=== PATIENT | female | born 1955 | race Caucasian/White ===

== ENCOUNTER → 2023-12-09 | Outpatient (CLI) | payer MEDICARE, SELFPAY ==
[2023-12-09 11:52] LABS: Absolute Lymphocyte Count 1.56 X10^3/uL (0.83-4.51); Absolute Neutrophil Count 5.7 X10^3/uL (2.0-7.7); Basophil# 0.07 X10^3/uL; Basophil% 0.9 % (0-1); Eosinophil# 0.09 X10^3/uL; Eosinophils% 1.1 % (0-5); Hematocrit 40.2 % (37-47); Hemoglobin 13.8 g/dL (12.0-15.0); Lymphocyte # 1.56 X10^3/ul (0.83-4.51); Lymphocyte % 19.6 % (19-41); Mean Corp Hgb Conc 34.3 g/dL (32-36); Mean Corpuscular Hgb 31.1 pg (27.0-32.0); Mean Corpuscular Volume 90.5 fL (81-99); Mean Platelet Vol. 9.7 fl (6.2-12.0); Monocyte# 0.51 X10^3/uL; Monocyte% 6.4 % (0-10); NRBC Flagged by Analyzer 0 % (0-5); Neutrophil # 5.69 X10^3/uL (2.7-7.7); Neutrophil % 71.7 % (47-70); Platelet Count 245 K/mm3 (150-450); RBC Distribution Width CV 13.2 % (11.6-14.6); RBC Distribution Width SD 43.9 fl (35.1-43.9); Red Blood Count 4.44 M/mm3 (4.2-5.4); White Blood Count 7.9 K/mm3 (4.4-11.0)
[2023-12-09 11:58] LABS: Erythrocyte Sedimentation Rate 4 mm/hr (0-30)
[2023-12-09 12:39] LABS: CRP < 2.90 mg/L (0.0-3.0); Ferritin 25 ng/mL (8-252); Iron 79 ug/dL (50-170); Iron Binding Capacity,Total 410 ug/dL (250-450)
== END | disposition home or self-care (01) ==
LOC: LAB 11:11
PROVIDERS: PCP Family Medicine; Referring Provider Student in an Organized Health Care Education/Training Program; Visit Provider Student in an Organized Health Care Education/Training Program
DX: K92.1 Melena (principal)
CPT/HCPCS: 36415; 82728; 83540; 83550; 85025; 85652; 86140

== ENCOUNTER → 2023-12-26 | Outpatient (CLI) | payer MEDICARE, SELFPAY ==
[2023-12-30 02:07] LABS: Pancreatic Elastase, Fecal 199 (>200)
[2023-12-31 19:07] LABS: Calprotectin, Stool 12 ug/g (0-120); Fats, Neutral Normal (.); Fats, Total Increased (.)
== END | disposition home or self-care (01) ==
PROVIDERS: PCP Nurse Practitioner Family; Referring Provider Student in an Organized Health Care Education/Training Program; Visit Provider Student in an Organized Health Care Education/Training Program
DX: K92.1 Melena (principal); K58.9 Irritable bowel syndrome, unspecified
CPT/HCPCS: 82653; 82705; 83630; 83993; 87177; 87209; 87329

== ENCOUNTER 2024-07-22 09:01 | Day surgery (SDC) | payer MEDICARE, SELFPAY ==
--- NOTE | 2024-07-20 15:34 | PAT.ANE_ITS ---
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 When Was Last Pacemaker Check QUESTION #4 FULL TEXT: You/Your Family Experience fever (hyperthermia) with Anesthesia Last Oral Intake Last Oral intake: Last Oral Intake NPO since Meds taken in AM with sips of water? Meds patient instructed to take am of surgery PONV PONV - textile screen printer: PONV - textile screen printer Female Yes 07/20/24 12:31 HX of Motion Sickness No 07/20/24 12:31 HX of N/V After Surgery Yes 07/20/24 12:31 Non-Smoker Yes 07/20/24 12:31 Duration of Surgery greater No 07/20/24 12:31 than 60 minutes Number of Risk Factors 3 07/20/24 12:31 PONV Score Moderate Risk 07/20/24 12:31 Respiratory Assessment Respiratory Assessment - textile screen printer: Respiratory Tract Infection Hx - textile screen printer Hx Respiratory Tract Infection No 07/20/24 12:31 STOP Sleep Apnea STOP Sleep Apnea - textile screen printer: STOP Sleep Apnea - textile screen printer Hx Hypertension Yes: CONTROLLED ON MED 07/20/24 12:31 Hx Sleep Apnea No 07/20/24 12:31 CPAP BIPAP Do you snore loudly (louder No 07/20/24 12:31 than talking or can be heard Do you often feel tired/ No 07/20/24 12:31 fatigued/ sleepy during daytime? Has anyone observed you stop No 07/20/24 12:31 breathing during sleep? STOP Results Negative 07/20/24 12:31 QUESTION #5 FULL TEXT : Do you snore loudly (louder than talking or can be heard through closed doors)? 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 Specify any problems Hx of Preganancy in last 3 No 07/20/24 12:31 Months Nurse Filling Out Transfusion VCHRISTIN 07/20/24 12:31 & Questions: Date: 07/20/24 07/20/24 12:31 Time: 12:32 07/20/24 12:31 Patient unable to answer at this time (ie. confused, unrespo /Reproduction History /Reproductive History - textile screen printer: /Reproductive Hx- textile screen printer Hx Now No 07/20/24 12:31 Gestational Age (in weeks): EDC: Hx Hx Para Hx Section SAB No 07/20/24 12:31 PFSH Medical History (Updated 07/20/24 @ 12:30 by Galina Guzman) Wears glasses Cancer Post-menopausal Alcohol use Arthritis Thyroid disease High cholesterol Excessive bleeding Former smoker COPD (chronic obstructive pulmonary disease) Asthma Shortness of breath on exertion History of edema History of echocardiogram History of stress test Hypertension Cardiology follow-up encounter History of irregular heartbeat Hx of pilonidal cyst Vitamin D deficiency Lower extremity edema Hyperthyroidism Chest tightness Familial hypercholesteremia DVT (deep venous thrombosis) MVP (mitral valve prolapse) Benign essential HTN Blood in feces Home Medications ?Medication ?Instructions ?Recorded ?Last Taken ?Type albuterol sulfate 90 mcg/actuation 1 inh inhalation ON CE PRN 09/27/23 Unknown History aerosol inhaler shortness of breath or wheez ing apixaban 5 mg tablet 5 mg PO BID 09/27/2303/2 5 History carvedilol 25 mg tablet 25 mg PO BID 09/27/23 Unknow n History dorzolamide 22.3 mg-timolol 6.8 1 drp ophthalmic (eye) BID 09/27/23 Unknown History mg/mL eye drops hydrochlorothiazide 25 mg tablet 25 mg PO DAILY Unknown History latanoprost 0.005 % eye drops 1 drp ophthalmic (eye) D AILY 09/27/23 Unknown History levothyroxine 112 mcg capsule 112 mcg PO MOTUWETHFRSA 09/27/23 Unknown History rosuvastatin 20 mg tablet 20 mg PO DAILY 09/27/23 Unkn own History brimonidine 0.2 % eye drops 1 drp ophthalmic (eye) TID 07/20/24 Unknown History cholecalciferol (vitamin D3) 125 125 mcg PO DAILY 08/09 Unknown History mcg (5,000 unit) tablet (Vitamin D3) Allergy/AdvReac Type Severity Reaction Status Date / Time moxifloxacin (From Avelox) Allergy Intermediate Other Verified 07/20/24 12:13 Surgical History (Updated 07/20/24 @ 12:30 by Galina Guzman) History of cardiac catheterization Hx of thyroidectomy Hx of detached retina repair Social History (Updated 09/27/23 @ 10:50 by Zora Velazquez) Smoking Status: Former smoker quit date: 11/10/19 alcohol intake: never Audit: Pertinent Findings Pertinent Findings Stress test pertinent findings: Stress test 05/2022 showing anterior ischemia, patient denied C Echo (EF%) pertinent findings: EF 60-65%, trivial AR (05/2022) Heart catheterization pertinent findings: LHC 2012 showing no CAD, refused recent LHC in 2022 Recommendation Anesthesia Recommendation Anesthesia recommendation: OPTIMIZED for anesthesia
--- NOTE | 2024-07-20 15:35 | PAT.ANE_ITS ---
Pre-Assessment Diagnosis/Proposed Procedure Planned Operative Procedure(s): COLONOSCOPY Anesthesia History Anesthesia History - obstetrics gyn physician: Anesthesia History - obstetrics gyn physician Hx Hospitalization No 07/20/24 12:31 Any Problems With Anesthesia Yes: N&V 07/20/24 12:31 Cholinesterase deficiency No 07/20/24 12:31 You/Your Family Experience No 07/20/24 12:31 fever (hyperthermia) with Relationship Recent Exposure to Contagious Disease Does patient have nerve No 07/20/24 12:31 stimulator Patient instructed to have device shut off --Does patient have Pacemaker or ICD? When Was Last Pacemaker Check QUESTION #4 FULL TEXT: You/Your Family Experience fever (hyperthermia) with Anesthesia Last Oral Intake Last Oral intake: Last Oral Intake NPO since Meds taken in AM with sips of water? Meds patient instructed to take am of surgery PONV PONV - obstetrics gyn physician: PONV - obstetrics gyn physician Female Yes 07/20/24 12:31 HX of Motion Sickness No 07/20/24 12:31 HX of N/V After Surgery Yes 07/20/24 12:31 Non-Smoker Yes 07/20/24 12:31 Duration of Surgery greater No 07/20/24 12:31 than 60 minutes Number of Risk Factors 3 07/20/24 12:31 PONV Score Moderate Risk 07/20/24 12:31 Respiratory Assessment Respiratory Assessment - obstetrics gyn physician: Respiratory Tract Infection Hx - obstetrics gyn physician Hx Respiratory Tract Infection No 07/20/24 12:31 STOP Sleep Apnea STOP Sleep Apnea - obstetrics gyn physician: STOP Sleep Apnea - obstetrics gyn physician Hx Hypertension Yes: CONTROLLED ON MED 07/20/24 12:31 Hx Sleep Apnea No 07/20/24 12:31 CPAP BIPAP Do you snore loudly (louder No 07/20/24 12:31 than talking or can be heard Do you often feel tired/ No 07/20/24 12:31 fatigued/ sleepy during daytime? Has anyone observed you stop No 07/20/24 12:31 breathing during sleep? STOP Results Negative 07/20/24 12:31 QUESTION #5 FULL TEXT : Do you snore loudly (louder than talking or can be heard through closed doors)? 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 Specify any problems Hx of Preganancy in last 3 No 07/20/24 12:31 Months Nurse Filling Out Transfusion VCHRISTIN 07/20/24 12:31 & Questions: Date: 07/20/24 07/20/24 12:31 Time: 12:32 07/20/24 12:31 Patient unable to answer at this time (ie. confused, unrespo /Reproduction History /Reproductive History - obstetrics gyn physician: /Reproductive Hx- obstetrics gyn physician Hx Now No 07/20/24 12:31 Gestational Age (in weeks): EDC: Hx Hx Para Hx Section SAB No 07/20/24 12:31 PFSH Medical History (Updated 07/20/24 @ 12:30 by Galina Guzman) Wears glasses Cancer Post-menopausal Alcohol use Arthritis Thyroid disease High cholesterol Excessive bleeding Former smoker COPD (chronic obstructive pulmonary disease) Asthma Shortness of breath on exertion History of edema History of echocardiogram History of stress test Hypertension Cardiology follow-up encounter History of irregular heartbeat Hx of pilonidal cyst Vitamin D deficiency Lower extremity edema Hyperthyroidism Chest tightness Familial hypercholesteremia DVT (deep venous thrombosis) MVP (mitral valve prolapse) Benign essential HTN Blood in feces Home Medications ?Medication ?Instructions ?Recorded ?Last Taken ?Type albuterol sulfate 90 mcg/actuation 1 inh inhalation ON CE PRN 09/27/23 Unknown History aerosol inhaler shortness of breath or wheez ing apixaban 5 mg tablet 5 mg PO BID 09/27/2303/2 5 History carvedilol 25 mg tablet 25 mg PO BID 09/27/23 Unknow n History dorzolamide 22.3 mg-timolol 6.8 1 drp ophthalmic (eye) BID 09/27/23 Unknown History mg/mL eye drops hydrochlorothiazide 25 mg tablet 25 mg PO DAILY Unknown History latanoprost 0.005 % eye drops 1 drp ophthalmic (eye) D AILY 09/27/23 Unknown History levothyroxine 112 mcg capsule 112 mcg PO MOTUWETHFRSA 09/27/23 Unknown History rosuvastatin 20 mg tablet 20 mg PO DAILY 09/27/23 Unkn own History brimonidine 0.2 % eye drops 1 drp ophthalmic (eye) TID 07/20/24 Unknown History cholecalciferol (vitamin D3) 125 125 mcg PO DAILY 08/09 Unknown History mcg (5,000 unit) tablet (Vitamin D3) Allergy/AdvReac Type Severity Reaction Status Date / Time moxifloxacin (From Avelox) Allergy Intermediate Other Verified 07/20/24 12:13 Surgical History (Updated 07/20/24 @ 12:30 by Galina Guzman) History of cardiac catheterization Hx of thyroidectomy Hx of detached retina repair Social History (Updated 09/27/23 @ 10:50 by Zora Velazquez) Smoking Status: Former smoker quit date: 11/10/19 alcohol intake: never
[2024-07-22] VITALS (7 sets, daily range): BP systolic 123–164; BP diastolic 70–95; PULSE 66–80; RESP 16–20; TEMP 36.2–36.7; O2SAT 99–100; BMI 27.0
[2024-07-22] MEDS: Lactated Ringers 1,000 ML 15 ML IV (09:29)
--- NOTE | 2024-07-22 09:40 | PRE.ANES_ITS ---
ASA Classification* ASA Classification ASA Classification: 3 (hx thyroidectomy, MVP, has had LHC in the past, has some mild cardiac history. No stents. Refused LHC in 2022 for some EKG changes, patient states she is doing okay) Assessment & Plan Anesthesia* Anesthesia Assessment Anesthesia Assessment: Discussed sedation and/or anesthesia options, risks, benefits, and alternatives with patient/parents/legal guardian/POA. Questions invited. The patient/parents/legal guardian/POA seems to understand and agrees to proceed with anesthesia plan. Reviewed the physical assessment, medical history, allergy history and patient home medications list prior to surgery/procedure/anesthetic and documented any changes. Performed airway and anesthesia risk assessments. Anesthesia Type Anesthesia Type: General History Source History Obtained from:: Patient and Chart Anesthesia Focused Assessment* Temperature: 98.1 F Pulse Rate: 66 Blood Pressure: 164/95 Respiratory Rate: 17 Pulse Ox: 100 Oxygen Delivery Method: Room Air Airway Assessment Mouth opens: >3 cm Mallampati Score: II Teeth Condition: Intact and Missing (few missing) Neck Range of motion (ROM): Full ROM Focused Labs Anesthesia Preop lab: CBC WBC 7.9 K/mm3 (4.4-11.0) 12/09/23 11:26 12/09/23 RBC 4.44 M/mm3 (4.2-5.4) 12/09/23 11:26 12/09/23 Hgb 13.8 g/dL (12.0-15.0) 12/09/23 11:26 12/09/23 Hct 40.2 % (37-47) 12/09/23 11:26 12/09/23 Plt Count 245 K/mm3 (150-450) 12/09/23 11:26 12/09/23 CHEMISTRY Potassium 4.2 mmol/L (3.5-5.1) 03/31/15 09:05 03/31/15 Sodium 140 mmol/L (136-145) 03/31/15 09:05 03/31/15 BUN 12 mg/dL (7-18) 03/31/15 09:05 03/31/15 Creatinine 0.72 mg/dL (0.55-1.20) 03/31/15 09:05 03/31/15 Glucose 85 mg/dL (70-110) 03/31/15 09:05 03/31/15 TSH 1.44 uIU/mL (0.358-3.74) 03/31/15 09:05 COAG Pre-Assessment Diagnosis/Proposed Procedure Planned Operative Procedure(s): COLONOSCOPY Anesthesia History 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 When Was Last Pacemaker Check QUESTION #4 FULL TEXT: You/Your Family Experience fever (hyperthermia) with Anesthesia Last Oral Intake Last Oral intake: Last Oral Intake NPO since 07:00 07/22/24 09:29 Meds taken in AM with sips of Yes 07/22/24 09:29 water? Meds patient instructed to take am of surgery PONV PONV - project development leader: PONV - project development leader Female Yes 07/20/24 12:31 HX of Motion Sickness No 07/20/24 12:31 HX of N/V After Surgery Yes 07/20/24 12:31 Non-Smoker Yes 07/20/24 12:31 Duration of Surgery greater No 07/20/24 12:31 than 60 minutes Number of Risk Factors 3 07/20/24 12:31 PONV Score Moderate Risk 07/20/24 12:31 Height & Weight Height & Weight: Anesthesia: Height & Weight Height 5 ft 5 in 07/22/24 09:29 Weight: 73.6 kg 07/22/24 09:29 Body Mass Index (BMI) 27.0 07/22/24 09:29 Respiratory Assessment Respiratory Assessment - project development leader: Respiratory Tract Infection Hx - project development leader Hx Respiratory Tract Infection No 07/20/24 12:31 STOP Sleep Apnea STOP Sleep Apnea - project development leader: STOP Sleep Apnea - project development leader Hx Hypertension Yes: CONTROLLED ON MED 07/20/24 12:31 Hx Sleep Apnea No 07/20/24 12:31 CPAP BIPAP Do you snore loudly (louder No 07/20/24 12:31 than talking or can be heard Do you often feel tired/ No 07/20/24 12:31 fatigued/ sleepy during daytime? Has anyone observed you stop No 07/20/24 12:31 breathing during sleep? STOP Results Negative 07/20/24 12:31 QUESTION #5 FULL TEXT : Do you snore loudly (louder than talking or can be heard through closed doors)? 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 Specify any problems Hx of Preganancy in last 3 No 07/20/24 12:31 Months Nurse Filling Out Transfusion VCHRISTIN 07/20/24 12:31 & Questions: Date: 07/20/24 07/20/24 12:31 Time: 12:32 07/20/24 12:31 Patient unable to answer at this time (ie. confused, unrespo /Reproduction History /Reproductive History - project development leader: /Reproductive Hx- project development leader Hx Now No 07/20/24 12:31 Gestational Age (in weeks): EDC: Hx Hx Para Hx Section SAB No 07/20/24 12:31 Active Medications Active Medications: Current Medications Generic Name Dose Route Start Last Admin Trade Name Freq PRN Reason Stop Dose Admin Lactated Ringer's 1,000 mls @ 15 mls/hr 07/22/24 09:15 07/22/24 09:29 IV 15 mls/hr .Q48H ELISE Administration PFSH Medical History (Updated 07/20/24 @ 12:30 by Galina Guzman) Wears glasses Cancer Post-menopausal Alcohol use Arthritis Thyroid disease High cholesterol Excessive bleeding Former smoker COPD (chronic obstructive pulmonary disease) Asthma Shortness of breath on exertion History of edema History of echocardiogram History of stress test Hypertension Cardiology follow-up encounter History of irregular heartbeat Hx of pilonidal cyst Vitamin D deficiency Lower extremity edema Hyperthyroidism Chest tightness Familial hypercholesteremia DVT (deep venous thrombosis) MVP (mitral valve prolapse) Benign essential HTN Blood in feces Home Medications ?Medication ?Instructions ?Recorded ?Last Taken ?Type albuterol sulfate 90 mcg/actuation 1 inh inhalation ON CE PRN 09/27/23 Unknown History aerosol inhaler shortness of breath or wheez ing apixaban 5 mg tablet 5 mg PO BID 09/27/23 5 History carvedilol 25 mg tablet 25 mg PO BID 09/27/23 History dorzolamide 22.3 mg-timolol 6.8 1 drp ophthalmic (eye) BID 09/27/23 07/22/24 History mg/mL eye drops hydrochlorothiazide 25 mg tablet 25 mg PO DAILY 07/21/24 History latanoprost 0.005 % eye drops 1 drp ophthalmic (eye) D AILY 09/27/23 07/21/24 History levothyroxine 112 mcg capsule 112 mcg PO MOTUWETHFRSA 09/27/23 07/22/24 History rosuvastatin 20 mg tablet 20 mg PO DAILY 09/27/2309/09 History brimonidine 0.2 % eye drops 1 drp ophthalmic (eye) TID 07/20/24 07/22/24 History cholecalciferol (vitamin D3) 125 125 mcg PO DAILY 08/0907/21/24 History mcg (5,000 unit) tablet (Vitamin D3) Allergy/AdvReac Type Severity Reaction Status Date / Time moxifloxacin (From Avelox) Allergy Intermediate Other Verified 07/22/24 09:23 Surgical History (Updated 07/20/24 @ 12:30 by Galina Guzman) History of cardiac catheterization Hx of thyroidectomy Hx of detached retina repair Social History (Updated 09/27/23 @ 10:50 by Zora Velazquez) Smoking Status: Former smoker quit date: 11/10/19 alcohol intake: never Review of Systems (Anesthesia) ROS Narrative System reviewed and no additional complaints, except as documented.
--- NOTE | 2024-07-22 10:00 | COLBX_PTH ---
PATIENT: LETI LOZOYA LOC: [facility] U#:[id number] AGE/SX: 69/F ROOM: RE07/22/[address]: Dr. Elmo Xiong DO : 1955 BED: DIS: 07/22/2024 SPEC #: [id number] RECD: 07/22/24 13:59 STATUS: THEA REPaul #: [id number] GONZALES: 07/22/24 10:[address]: Elmo Xiong DEPT: SURGICAL PATHOLOGY RECD BY: Sae Viveros ENTERED: 07/22/24 15:36 SP TYPE: COLON BX OTHR DR: Kyra Gonzales, DOOR CLAMPER-C Tissues: A - Ascending colon B - Cecum, NOS C - Transverse colon D - SPLENIC FLEXURE E - Sigmoid colon biopsy Procedures: Surgery Specimen Level IV HEADER OPERATION: Colonoscopy with polypectomy x2 with hemostasis PRE-OP DIAGNOSIS: Blood in feces TISSUE SUBMITTED: A- Ascending colon polyps, B- Cecum polyp biopsy, C- Transverse colon polyp, D- Splenic flexure polyp, E- Sigmoid colon biopsy MICROSCOPIC DIAGNOSIS A. Ascending colon, polyp, biopsy: * Tubular adenoma B. Colon, cecum, polyp, biopsy: * Tubular adenoma C. Transverse colon, polyp, biopsy: * Tubular adenoma D. Colon, splenic flexure, polyp, biopsy: * Tubular adenoma E. Sigmoid colon, polyp, biopsy: * Tubulovillous adenoma MICROSCOPIC DESCRIPTION Slides are reviewed. GROSS DESCRIPTION A. Received in formalin in a container labeled with the patient's name, date of , and ascending colon polyp are multiple hamlin-pink fragments of mucosal tissue measuring 1.0 x 0.5 x 0.3 cm in aggregate. Submitted in toto in A1. B. Received in formalin in a container labeled with the patient's name, date of , and cecum polyp biopsy are 3 hamlin-pink fragments of mucosal tissue, each measuring 0.4 x 0.4 x 0.3 cm. Submitted in toto in B1. C. Received in formalin in a container labeled with the patient's name, date of , and transverse colon polyp are multiple hamlin-pink fragments of mucosal tissue measuring 2.5 x 2.3 x 0.7 cm in aggregate. The largest fragment is sectioned (no margin is identified). The specimen is submitted entirely in C1-2. D. Received in formalin in a container labeled with the patient's name, date of , and splenic flexure polyp is a 0.5 x 0.3 x 0.3 cm fragment of hamlin-pink mucosal tissue. Submitted in toto in D1. E. Received in formalin in a container labeled with the patient's name, date of , and sigmoid colon polyp is a 2.5 x 1.8 x 1.7 cm hamlin-pink and polypoid piece of mucosal tissue with an attached 0.6 cm in length by 0.8 cm in diameter stalk (margin inked black). Sectioning reveals hamlin-pink, friable surfaces. Received in the same container are multiple small hamlin-pink fragments of mucosal tissue measuring 0.7 x 0.7 x 0.3 cm in aggregate. The specimen is submitted entirely as follows:E1-5. Polypoid fragment, serially sectionedE6. Smaller fragments [facility] 07-22-2024 CPT:94183x7
--- NOTE | 2024-07-22 10:07 | PCM.HP.STD ---
[facility] - General General Date of Admission: 07/22/24 Date of Service: 07/22/24 Chief Complaint: GI bleed [facility] Narrative LETI LOZOYA, is a 69 F who presents with the chief Complaint: blood in stool f/u [facility] established 9.23.24 w/ bright red blood in her stool for 6-7 months. No hx of colonoscopy and would like to avoid one. Hx of thyroid cancer. Biochemical work up; CBC wnl, iron, TIBC and ferritin wnl OV 1.2.24 Pt continues to have bright red blood streaking when she wipes. She feels ready to have a colonoscopy at this time. She denies abd pain, n/v, constipation, diarrhea, melena, loss of appetite or unintentional weight loss. [facility] Medical History Wears glasses Cancer Post-menopausal Alcohol use Arthritis Thyroid disease High cholesterol Excessive bleeding Former smoker COPD (chronic obstructive pulmonary disease) Asthma Shortness of breath on exertion History of edema History of echocardiogram History of stress test Hypertension Cardiology follow-up encounter History of irregular heartbeat Hx of pilonidal cyst Vitamin D deficiency Lower extremity edema Hyperthyroidism Chest tightness Familial hypercholesteremia DVT (deep venous thrombosis) MVP (mitral valve prolapse) Benign essential HTN Blood in feces Home Medications ?Medication ?Instructions ?Recorded ?Last Taken ?Type albuterol sulfate 90 mcg/actuation 1 inh inhalation ONCE PRN 09/27/23 Unknown History aerosol inhaler shortness of breath or wheezing apixaban 5 mg tablet 5 mg PO BID 09/27/23 07/18/24 History carvedilol 25 mg tablet 25 mg PO BID 09/27/23 07/22/24 History dorzolamide 22.3 mg-timolol 6.8 1 drp ophthalmic (eye) BID 09/27/23 07/22/24 History mg/mL eye drops hydrochlorothiazide 25 mg tablet 25 mg PO DAILY 09/27/23 07/21/24 History latanoprost 0.005 % eye drops 1 drp ophthalmic (eye) DAILY 09/27/23 07/21/24 History levothyroxine 112 mcg capsule 112 mcg PO MOTUWETHFRSA 09/27/23 07/22/24 History rosuvastatin 20 mg tablet 20 mg PO DAILY 09/27/23 07/21/24 History brimonidine 0.2 % eye drops 1 drp ophthalmic (eye) TID 07/20/24 07/22/24 History cholecalciferol (vitamin D3) 125 125 mcg PO DAILY 07/20/24 07/21/24 History mcg (5,000 unit) tablet (Vitamin D3) Allergy/AdvReac Type Severity Reaction Status Date / Time moxifloxacin (From Avelox) Allergy Intermediate Other Verified 07/22/24 09:23 Surgical History History of cardiac catheterization Hx of thyroidectomy Hx of detached retina repair Social History Smoking Status: Former smoker quit date: 11/10/19 alcohol intake: never ROS Constitutional Constitutional: Denies fatigue, fever(s), poor appetite, weight gain or weight loss Gastrointestinal Gastrointestinal: Denies belching, bloating, change in bowel habits, change in stool character, chewing difficulty, coffee ground emesis, constipation, cramping, diarrhea, dyspepsia, dysphagia, early satiety, excessive flatus, fecal incontinence, heartburn, hematemesis, hematochezia, hemorrhoids, loose stools, melena, nausea, odynophagia, rectal bleeding, tenesmus, vomiting or weight changes Vital Signs Vital Signs Vital Signs: 07/22/24 09:29 07/22/24 09:29 07/22/24 09:40 Temperature 98.1 F 98.1 F Temperature Source Temporal Pulse Rate 66 66 Respiratory Rate 17 17 Respiratory Pattern Normal Blood Pressure 164/95 H 164/95 H Blood Pressure Mean 118 Blood Pressure Source Monitor Blood Pressure Position Semi-Fowlers Blood Pressure Location Left Arm Pulse Ox 100 100 Oxygen Delivery Method Room Air Room Air Weight Weight: 162 lb 4.163 oz Body Mass Index (BMI) 27.0 Physical Exam Const alert, oriented x3, no apparent distress and healthy appearing General Appearance: cooperative GI normal to inspection, nondistended, normoactive bowel sounds, soft to palpation, non-tender and non-distended Percussion: normal to percussion Rectal Exam: deferred Assessment & Plan Assessment/Plan (1) Blood in feces: PLAN: Assessment and Plan Assessment and Plan (1) Blood in feces: Status: Acute Plan: This is a 68 yo female pt who established care for bright red blood when wiping after a bm. CBC and iron studies were wnl. She declined colonoscopy at last appointment. Today pt continues to have bright red blood intermittently. She is ready to have a colonoscopy. I explained this procedure to her and she will be scheduled. Her bleeding is likely hemorrhoidal or diverticular in nature. -Colonoscopy with banding if indicated -f/u after procedure
--- NOTE | 2024-07-22 11:31 | PCM.POST.ANE ---
Anesthesia: Postop Eval I Current Vital Signs Temperature: 97.2 F Pulse Rate: 80 Blood Pressure: 123/77 Respiratory Rate: 20 Pulse Ox: 99 Oxygen Delivery Method: Room Air Assessment Airway patent: Yes Spontaneous unlabored respirations: Yes Mental status: Awake and Calm nausea: No Vomiting: No Anesthesia Complication: No Fluid Hydration Crystalloid volume administer (ml): 800 Total IV fluid infused: 800 Progress Note Anesthesia document: Postop Eval 1 completed: Yes
--- NOTE | 2024-07-22 11:47 | OP.CCLET_ITS ---
07/22/2024 Kyra Gonzales Re : Colonoscopy procedure for Eleazar Garcia Dear Christian This procedure was performed on Monday, July 22, 2024. My impressions and recommendations are as follows: Impressions : - Two 2 to 3 mm polyps in the sigmoid colon and in the transverse colon, removed piecemeal using a hot snare. Resected and retrieved. Treated with argon plasma coagulation (APC). Tattooed. - Diverticulosis in the recto-sigmoid colon, in the sigmoid colon and in the descending colon. - Four 1 to 2 mm polyps at the splenic flexure, at the hepatic flexure and in the ascending colon, removed with a hot snare. Resected and retrieved. - Three 10 mm polyps in the cecum, removed with a cold biopsy forceps. Resected and retrieved. Recommendations : - Repeat colonoscopy in 6 months for surveillance. - Continue present medications. My findings are described in the full procedure note, which is enclosed. If I can be of further assistance, please feel free to contact me at . Sincerely, Elmo Xiong DO 07/22/2024 11:46:26 AM This report has been signed electronically.
--- NOTE | 2024-07-22 11:47 | OP.COLON_ITS ---
Patient Name: Eleazar Garcia Procedure Date: 07/22/2024 10:13 AM Date of : 1955 Age: 69 Procedure: Colonoscopy Indications: Screening for colorectal malignant neoplasm Providers: DO Freddie Joy MD: Kyra Gonzales Medicines: Monitored Anesthesia Care Patient Profile: This is a 69 year old female. Refer to note in patient chart for documentation of history and physical. Last Colonoscopy: none. The patient's first colonoscopy is today. Complications: No immediate complications. Procedure: Pre-Anesthesia Assessment: - Prior to the procedure, a History and Physical was performed, and patient medications and allergies were reviewed. The patient is competent. The risks and benefits of the procedure and the sedation options and risks were discussed with the patient. All questions were answered and informed consent was obtained. Patient identification and proposed procedure were verified by the physician in the pre-procedure area. Mental Status Examination: alert and oriented. Airway Examination: normal oropharyngeal airway and neck mobility. Respiratory Examination: clear to auscultation. CV Examination: normal. Prophylactic Antibiotics: The patient does not require prophylactic antibiotics. Prior Anticoagulants: The patient has taken Eliquis (apixaban), last dose was 1 day prior to procedure. ASA Grade Assessment: II - A patient with mild systemic disease. After reviewing the risks and benefits, the patient was deemed in satisfactory condition to undergo the procedure. The anesthesia plan was to use monitored anesthesia care (MAC). Immediately prior to administration of medications, the patient was re-assessed for adequacy to receive sedatives. The heart rate, respiratory rate, oxygen saturations, blood pressure, adequacy of pulmonary ventilation, and response to care were monitored throughout the procedure. The physical status of the patient was re-assessed after the procedure. After I obtained informed consent, the scope was passed under direct vision. Throughout the procedure, the patient's blood pressure, pulse, and oxygen saturations were monitored continuously. The colonoscope was introduced through the anus and advanced to the cecum, identified by appendiceal orifice and ileocecal valve. The colonoscopy was performed without difficulty. The patient tolerated the procedure well. The quality of the bowel preparation was adequate. The ileocecal valve, appendiceal orifice, and rectum were photographed. Scope In: 10:25:55 AM Scope Withdrawal Time 0 hours 35 minutes 0 seconds Scope Out: 11:24:25 AM Total Procedure Duration Time 0 hours 58 minutes 30 seconds Findings: The perianal and digital rectal examinations were normal. Two sessile polyps were found in the sigmoid colon and transverse colon. The polyps were 2 to 3 mm in size. These polyps were removed with a piecemeal technique using a hot snare. Resection and retrieval were complete. Coagulation for destruction of remaining portion of lesion using argon plasma at 0.3 liters/minute and 20 prater was successful. Estimated blood loss was minimal. Area was tattooed with an injection of 5 mL of Miriam ink. To close a defect after polypectomy, one hemostatic clip was successfully placed. Clip store person: [employer]. There was no bleeding at the end of the procedure. Multiple small and large-mouthed diverticula were found in the recto-sigmoid colon, sigmoid colon and descending colon. Four sessile polyps were found in the splenic flexure, hepatic flexure and ascending colon. The polyps were 1 to 2 mm in size. These polyps were removed with a hot snare. Resection and retrieval were complete. Verification of patient identification for the specimen was done. Estimated blood loss was minimal. Three sessile polyps were found in the cecum. The polyps were 10 mm in size. These polyps were removed with a cold biopsy forceps. Resection and retrieval were complete. Verification of patient identification for the specimen was done. Estimated blood loss was minimal. Impression: - Two 2 to 3 mm polyps in the sigmoid colon and in the transverse colon, removed piecemeal using a hot snare. Resected and retrieved. Treated with argon plasma coagulation (APC). Tattooed. - Diverticulosis in the recto-sigmoid colon, in the sigmoid colon and in the descending colon. - Four 1 to 2 mm polyps at the splenic flexure, at the hepatic flexure and in the ascending colon, removed with a hot snare. Resected and retrieved. - Three 10 mm polyps in the cecum, removed with a cold biopsy forceps. Resected and retrieved. Recommendation: - Repeat colonoscopy in 6 months for surveillance. - Continue present medications. Procedure Code(s): --- Professional --- 71569, Colonoscopy, flexible; with removal of tumor(s), polyp(s), or other lesion(s) by snare technique 91720, 59, Colonoscopy, flexible; with biopsy, single or multiple 39260, Colonoscopy, flexible; with directed submucosal injection(s), any substance CPT copyright 2021 [employer]. All rights reserved. The codes documented in this report are preliminary and upon garbage man review may be revised to meet current compliance requirements. Elmo Xiong DO 07/22/2024 11:46:26 AM This report has been signed electronically. Number of Addenda: 0 Note Initiated On: 07/22/2024 10:13 AM
--- NOTE | 2024-07-22 11:56 | POSTOPAN2_ITS ---
Anesthesia Postop Eval I Sum Postop Eval Completion status Anesthesia document: Postop Eval 1 completed: Yes Anesthesia Postop Eval I Summary Anesthesia Postop Eval I Summary: Anesthesia Postop Eval I: Assessment Summary Airway patent Yes 07/22/24 11:31 [email or web address] Spontaneous unlabored Yes 07/22/24 11:31 SCHOOL [email or web address] respirations Mental status Awake,Calm 07/22/24 11:31 [email or web address] nausea No 07/22/24 11:31 SCHOOL [email or web address] Vomiting No 07/22/24 11:31 [email or web address] Anesthesia Postop Eval I: Fluid Summary Crystalloid volume administer 800 07/22/24 11:31 [email or web address] (ml) Colloids volume administered ( ml) Blood Product volume administered (ml) Total IV fluid infused 800 07/22/24 11:31 [email or web address] Anesthesia Postop Eval I: Summary Notes Anesthesia Complication No 07/22/24 11:31 [email or web address] [email or web address] Anesthesia Complication Comment: Post-operative progress note Anesthesia: Postop Eval II Evaluation Mental status: Awake Pain Level: 0 nausea: No Vomiting: No Complications Anesthesia Complication: No
--- NOTE | 2024-07-22 11:56 | PCM.POSTANE2 ---
Anesthesia Postop Eval I Sum Postop Eval Completion status Anesthesia document: Postop Eval 1 completed: Yes Anesthesia Postop Eval I Summary Anesthesia Postop Eval I Summary: Anesthesia Postop Eval I: Assessment Summary Airway patent Yes 07/22/24 11:31 WATER FILTRATION [email or web address] Spontaneous unlabored Yes 07/22/24 11:31 WATER FILTRATION [email or web address] respirations Mental status Awake,Calm 07/22/24 11:31 WATER FILTRATION [email or web address] nausea No 07/22/24 11:31 WATER FILTRATION [email or web address] Vomiting No 07/22/24 11:31 WATER FILTRATION [email or web address] Anesthesia Postop Eval I: Fluid Summary Crystalloid volume administer 800 07/22/24 11:31 WATER FILTRATION [email or web address] (ml) Colloids volume administered ( ml) Blood Product volume administered (ml) Total IV fluid infused 800 07/22/24 11:31 WATER FILTRATION [email or web address] Anesthesia Postop Eval I: Summary Notes Anesthesia Complication No 07/22/24 11:31 WATER FILTRATION [email or web address] Anesthesia Complication Comment: Post-operative progress note Anesthesia: Postop Eval II Evaluation Mental status: Awake Pain Level: 0 nausea: No Vomiting: No Complications Anesthesia Complication: No
== END 2024-07-22 12:33 | disposition home or self-care (01) ==
LOC: EN 09:03 → AC 09:06
PROVIDERS: PCP Nurse Practitioner Family; Referring Provider Nurse Practitioner Family; Visit Provider Internal Medicine Gastroenterology
PROC: 0DJD8ZZ Inspection of Lower Intestinal Tract, Via Natural or Artificial Opening Endoscopic (ICD-10-PCS; CPT 45378; principal; 2024-07-22 09:55)
DX: D12.5 Benign neoplasm of sigmoid colon (principal); J44.9 Chronic obstructive pulmonary disease, unspecified; D12.0 Benign neoplasm of cecum; D12.2 Benign neoplasm of ascending colon; D12.3 Benign neoplasm of transverse colon; K92.1 Melena; K57.30 Diverticulosis of large intestine without perforation or abscess without bleeding; E07.9 Disorder of thyroid, unspecified; E78.01 Familial hypercholesterolemia; I10 Essential (primary) hypertension; Z79.01 Long term (current) use of anticoagulants; Z79.890 Hormone replacement therapy; Z79.899 Other long term (current) drug therapy; Z87.891 Personal history of nicotine dependence; Z85.850 Personal history of malignant neoplasm of thyroid
CPT/HCPCS: 45385; 45380; 45381; 88305; C1889; A4648; J2405

== ENCOUNTER 2024-07-28 16:30 | Inpatient (IN) | payer MEDICARE, SELFPAY ==
[2024-07-28] VITALS (22 sets, daily range): BP systolic 42–159; BP diastolic 31–95; PULSE 72–95; RESP 13–21; TEMP 36–37.3; O2SAT 94–99; BMI 26.9; BMI 27.1
--- NOTE | 2024-07-28 16:50 | EKG12_ITS ---
Test Reason : GI BLEED Blood Pressure : */* mmHG Vent. Rate : 86 BPM Atrial Rate : 86 BPM P-R Int : 180 ms QRS Dur : 94 ms QT Int : 404 ms P-R-T Axes : 59 44 33 degrees QTcB Int : 483 ms Normal sinus rhythm Nonspecific ST and T wave abnormality Abnormal ECG Confirmed by Yang Salguero ([id number]), avid editor CANDELARIO JARA ([id number]) on 07/30/2024 10:01:08 AM Referred By: Elmo Friend Confirmed By: Yang Salguero
[2024-07-28 17:11] LABS: Absolute Lymphocyte Count 1.53 X10^3/uL (0.83-4.51); Absolute Neutrophil Count 5.9 X10^3/uL (2.0-7.7); Basophil# 0.06 X10^3/uL; Basophil% 0.7 % (0-1); Eosinophil# 0.04 X10^3/uL; Eosinophils% 0.5 % (0-5); Hematocrit 34.7 % (37-47); Hemoglobin 12.4 g/dL (12.0-15.0); Lymphocyte # 1.53 X10^3/ul (0.83-4.51); Lymphocyte % 18.3 % (19-41); Mean Corp Hgb Conc 35.7 g/dL (32-36); Mean Corpuscular Hgb 32.3 pg (27.0-32.0); Mean Corpuscular Volume 90.4 fL (81-99); Mean Platelet Vol. 9.8 fl (6.2-12.0); Monocyte# 0.76 X10^3/uL; Monocyte% 9.1 % (0-10); NRBC Flagged by Analyzer 0 % (0-5); Neutrophil % 70.8 % (47-70); Platelet Count 304 K/mm3 (150-450); RBC Distribution Width CV 13.3 % (11.6-14.6); Red Blood Count 3.84 M/mm3 (4.2-5.4); White Blood Count 8.3 K/mm3 (4.4-11.0)
[2024-07-28 17:14] LABS: Prothrombin Time (Protime)PT. 13.6 SECONDS (11.7-14.9)
[2024-07-28 17:15] LABS: Partial Thromboplast Time 28.9 Seconds (24.1-36.2)
--- NOTE | 2024-07-28 17:19 | EDS_ITS ---
HPI HPI - GI History of Present Illness Chief Complaint: GI Bleed Informant: patient and spouse/S.O. Narrative Narrative: Presents with increasing rectal bleeding with clots since yesterday. She had a colonoscopy [address] Collins with multiple polypectomies. She is on Eliquis for history of DVTs. She did hold her Eliquis prior to her procedure and she does not know which day she restarted it since her procedure 6 days ago. She had a couple bright red blood with small clots yesterday today has had at least 12 pads liquid with clots. Mild abdominal cramping. States mild lightheaded symptoms. No chest pains or shortness of breath. She did not take this morning's Eliquis. PFSH [facility] Medical History Alcohol abuse Wears glasses Cancer Post-menopausal Alcohol use Arthritis Thyroid disease High cholesterol Excessive bleeding Former smoker COPD (chronic obstructive pulmonary disease) Asthma Shortness of breath on exertion History of edema History of echocardiogram History of stress test Hypertension Cardiology follow-up encounter History of irregular heartbeat Hx of pilonidal cyst Vitamin D deficiency Lower extremity edema Hyperthyroidism Chest tightness Familial hypercholesteremia DVT (deep venous thrombosis) MVP (mitral valve prolapse) Benign essential HTN Blood in feces Home Medications ?Medication ?Instructions ?Recorded ?Last Taken ?Type albuterol sulfate 90 mcg/actuation 1 inh inhalation Q4 H PRN shortness 09/27/23 Unknown History aerosol inhaler of breath or wheezing apixaban 5 mg tablet 5 mg PO BID 09/27/23 5 History carvedilol 25 mg tablet 25 mg PO BID 09/27/23 History dorzolamide 22.3 mg-timolol 6.8 1 drp ophthalmic (eye) BID 09/27/23 07/28/24 History mg/mL eye drops hydrochlorothiazide 25 mg tablet 25 mg PO DAILY 07/28/24 History latanoprost 0.005 % eye drops 1 drp ophthalmic (eye) Q HS 09/27/23 07/27/24 History levothyroxine 112 mcg capsule 112 mcg PO MOTUWETHFRSA 09/27/23 07/28/24 History rosuvastatin 20 mg tablet 20 mg PO QHS 09/27/23 History brimonidine 0.2 % eye drops 1 drp ophthalmic (eye) TID 07/20/24 07/28/24 History cholecalciferol (vitamin D3) 125 125 mcg PO DAILY 08/0907/28/24 History mcg (5,000 unit) tablet (Vitamin D3) Allergy/AdvReac Type Severity Reaction Status Date / Time moxifloxacin (From Avelox) Allergy Intermediate Other Verified 07/28/24 16:33 Family History adopted Surgical History History of cardiac catheterization Hx of thyroidectomy Hx of detached retina repair Social History household members: none Smoking Status: Former smoker quit date: 11/10/19 alcohol intake: current alcohol intake frequency: 3 or more drinks per day Alcohol type: beer substance use type: does not use ROS ROS ED Constitutional Constitutional ED: Denies chills, fever(s) or sweats ENT ENT ED: Denies sore throat Cardiovascular Cardiovascular: Denies chest pain, leg edema, palpitations or racing heartbeat Respiratory/Chest Respiratory/Chest: Denies cough, dyspnea or dyspnea on exertion Gastrointestinal Gastrointestinal: Reports other Details: Hematochezia ; Denies abdominal pain, diarrhea, nausea or vomiting Genitourinary Genitourinary ED: Denies dysuria, hematuria or urinary frequency Musculoskeletal Musculoskeletal: Denies back pain, extremity pain or neck pain Integumentary Denies rash or wounds Neurologic Neurologic: Denies headache(s), paresthesias or weakness EXAM Physical Exam Const Vital Signs: 07/28/24 16:34 07/28/24 17:31 07/28/24 18:36 Temperature 97.4 F L Temperature Source Temporal Pulse Rate 95 84 Pulse Rate [Lying] 86 Pulse Rate [Sitting (for 1 minute prior to obtaining)] 84 Pulse Rate [Standing (for 1 minute prior to obtaining)] 90 Respiratory Rate 18 13 Blood Pressure 115/92 H 134/84 H Blood Pressure [Lying] 139/91 H Blood Pressure [Sitting (for 1 minute prior to obtaining)] 124/92 H Blood Pressure [Standing (for 1 minute prior to obtaining)] 70/55 L Blood Pressure Mean 99 100 Blood Pressure Mean [Lying] 107 Blood Pressure Mean [Sitting (for 1 minute prior to obtaining)] 102 Blood Pressure Mean [Standing (for 1 minute prior to obtaining)] 60 Pulse Ox 97 98 Oxygen Delivery Method Room Air 07/28/24 18:45 07/28/24 18:48 07/28/24 18:50 Temperature Temperature Source Pulse Rate 78 80 78 Pulse Rate [Lying] Pulse Rate [Sitting (for 1 minute prior to obtaining)] Pulse Rate [Standing (for 1 minute prior to obtaining)] Respiratory Rate Blood Pressure 88/62 L 42/31 L 155/95 H Blood Pressure [Lying] Blood Pressure [Sitting (for 1 minute prior to obtaining)] Blood Pressure [Standing (for 1 minute prior to obtaining)] Blood Pressure Mean 70 34 115 Blood Pressure Mean [Lying] Blood Pressure Mean [Sitting (for 1 minute prior to obtaining)] Blood Pressure Mean [Standing (for 1 minute prior to obtaining)] Pulse Ox Oxygen Delivery Method 07/28/24 19:00 Temperature 99.1 F Temperature Source Temporal Pulse Rate 77 Pulse Rate [Lying] Pulse Rate [Sitting (for 1 minute prior to obtaining)] Pulse Rate [Standing (for 1 minute prior to obtaining)] Respiratory Rate 13 Blood Pressure 159/92 H Blood Pressure [Lying] Blood Pressure [Sitting (for 1 minute prior to obtaining)] Blood Pressure [Standing (for 1 minute prior to obtaining)] Blood Pressure Mean 114 Blood Pressure Mean [Lying] Blood Pressure Mean [Sitting (for 1 minute prior to obtaining)] Blood Pressure Mean [Standing (for 1 minute prior to obtaining)] Pulse Ox 96 Oxygen Delivery Method Room Air Positive well nourished and well developed General Appearance ED: well developed and NAD HEENT Reports moist mucous membranes normocephalic and atraumatic Eyes Eyes Narrative: Mild pallor of conjunctiva General Eye ED: Yes normal appearance of both eyes Neck full ROM Chest Wall Chest: Negative for tenderness Resp normal respiratory effort and normal air movement Effort and Inspection: symmetric chest movement; Negative for respiratory distress Cardio regular rate, regular rhythm and no murmurs Peripheral Pulses: pulses 2+ throughout GI normal to inspection, nondistended, normoactive bowel sounds and non-tender Palpation: Negative for guarding or rebound tenderness present Extremity normal to inspection General Extremety ED: Negative for edema or tenderness General Extremity: Negative for edema Neuro oriented x3 and no sensory deficits noted Sensorium / Orientation: awake and alert Skin no rashes or lesions noted and no wounds MDM MDM MDM Narrative Medical decision making narrative: Interventions / MDM: Differential diagnosis: Lower GI bleed, syncope, chronic anticoagulation Diagnosis considered but do not suspect: N/A My EKG interpretation: N/A Imaging independently reviewed and interpreted by myself: CT angiogram abdomen pelvis: There is a hyperdensity bleeding sigmoid region. Pending final read. External documents reviewed: Colonoscopy from 6 days ago. Multiple polypectomies, performed cecum, ascending colon hepatic flexure transverse colon splenic flexure and sigmoid 1 clip was placed. Test considered but not ordered:N/A ED course: Rectal bleeding with clots starting yesterday she is on Eliquis. Slight pale conjunctiva. She did not take this morning's dose. At least 12 episodes today per patient. Nonsurgical abdomen. She had a bowel movement in the ED bright red blood in the cup. Vitals currently stable. Lightheaded symptoms. Will check orthostatics will check blood, EKG ordered. 1720: Hemoglobin currently 12.4. [place] score 16. EKG sinus rhythm. 172: During the time for orthostatics patient had a syncopal episode with staff assist In the room. Pressure 70/55, she awake in. Fluids were ordered. 174: Blood pressure 134 systolic in the room. BUN 12 creatinine 0.71. Potassium 2.8. I spoke with Dr. Xiong, we will obtain CT angiogram abdomen pelvis, we will admit the patient, he would like her prep with hospitalist service. We plan to repeat an H&H in 1 hour. 1855: Called back to the room patient had bowel movement with clots became symptomatic blood pressure was dropped in the 80s to 140s she is awake, additional IV established fluids given type and cross for 2 units. H&H being sent currently. Nurse report blood was drawn and it was after already drawn that she became symptomatic therefore less likely vasovagal concerns. Review of the CT angiogram concerns for hyperdensity bleed in the sigmoid region awaiting final read. Hospitalist Dr. Venutra was in the room also seeing the patient. I read discussed with Dr. Xiong who is currently at the hospital who will see the patient likely intervention tonight. She will be admitted to the ICU. 1904: Recheck hemoglobin 10.1 down from 12.4. Blood pressure currently 159/92. 2104: I did receive call from radiology, discussed confirming the bleeding from sigmoid region. At this time patient already in the endoscopy suite. Re-evaluation: stable Disposition discussed with patient/family/significant other: Patient and family Case discussed with consulting clinician: Gastroenterology, hospitalist This note was generated with [employer] software. It may contain incorrect words, spelling, and punctuation that were not noted in checking the note before signing. Lab Data Attestation: I reviewed the patient's lab results. Labs: Laboratory Results - last 24 hr 07/28/24 07/28/24 16:50 18:47 WBC 8.3 RBC 3.84 L Hgb 12.4 10.1 L Hct 34.7 L 29.1 L MCV 90.4 MCH 32.3 H MCHC 35.7 RDW Std Deviation 44.0 H RDW Coeff of Luis Fernando 13.3 Plt Count 304 MPV 9.8 Immature Gran % (Auto) 0.600 Neut % (Auto) 70.8 H Lymph % (Auto) 18.3 L Cochran % (Auto) 9.1 Eos % (Auto) 0.5 Baso % (Auto) 0.7 Absolute Neuts (auto) 5.9 Absolute Lymphs (auto) 1.53 Nucleated RBC % 0 PT 13.6 INR 1.0 APTT 28.9 Sodium 136 Potassium 2.8 L Chloride 94 L Carbon Dioxide 28.6 Anion Gap 13 BUN 12 Creatinine 0.71 Estim Creat Clear Calc 67.57 Est GFR (MDRD) Non-Af 93 BUN/Creatinine Ratio 16.2 Glucose 119 H Calcium 9.3 Phosphorus 3.6 Magnesium 2.1 Blood Type A NEGATIVE Antibody Screen NEGATIVE Crossmatch See Detail Radiography Diagnostic Testing: Clinical Impression(s) from Imaging Studies Abdomen/Pelvis CTA 07/28/24 17:49 IMPRESSION: Diffuse rectosigmoid wall thickening and hyperemia, with small focus of active extravasation, compatible with acute GI bleed. Diffuse atherosclerotic calcification without evidence of dissection. Red Alert: The critical information above was relayed directly by me by telephone to Rodríguez Bray on 07/28/2024 at 9:04 pm with readback verification. Reading [facility] Critical [facility] Time Critical Care Time: Yes Critical care time (excluding procedures): 30-74 minutes, Discussing w/Patient &/or Family/Credit Controller, Discussing w/Consultants, Arranging Admission or Transfer, Performing Direct Patient Care at Bedside and - (45 minutes) Discharge Plan Dx/Rx/DC Orders Clinical Impression: GI bleed, Syncope, Transient hypotension, Chronic anticoagulation Disposition Disposition: Acute Care Hospital [facility] Discharge Date/Time: 07/28/24 20:14
--- NOTE | 2024-07-28 17:33 | ED.RN ---
This RN at bedside obtaining orthostatic vitals. RN obtain lying and sitting. patient asked to stand for the last vital. pts blood pressure began. Patient c/o dizziness. RN continued to talk to patient monitoring her. Rn saw patients eyes begin to roll in the back of her head. RN safely returned patient to bed. Staff assist button pressed by this RN. RN advised daughter to remove the children from the room. Patient became conscious again asking if she passed out and what she remembered last. pt states she said she was dizzy and thats all she could remember. Patient repositioned in bed Patient states I think I messed my pants. RN collected adult diaper and warm wipes and began to clean and change patient. Will continue to monitor
[2024-07-28 17:38] LABS: Anion Gap 13 (5-15); BUN 12 mg/dL (4-19); BUN/Creat Ratio 16.2 RATIO (10-20); Calcium,Total 9.3 mg/dL (7.6-11.0); Carbon Dioxide 28.6 mmol/L (21.0-32.0); Chloride 94 mmol/L (98-108); Creatinine, Serum 0.71 mg/dL (0.70-1.20); EST Glomerular Filtration Rate 93 (>60); Estimated Creatinine Clearance 67.57 ml/min (50-250); Glucose 119 mg/dL (70-99); Potassium 2.8 mmol/L (3.3-5.1); Sodium Level 136 mmol/L (133-145)
--- NOTE | 2024-07-28 17:49 | CT_ITS ---
PROCEDURE: CTA ABD/PELVIS W/WO CONTRAST 07/28/2024 REASON FOR EXAM: GI BLEED TECHNIQUE: CTA imaging of the abdomen and pelvis with intravenous contrast. Multiplanar and multisequence images were obtained. CONTRAST: Omnipaque 350 VOLUME: 100 mL Not Provided Gauge IV One or more dose reduction techniques were used (e.g., Automated exposure control, adjustment of the mA and/or kV according to patient size, use of iterative reconstruction technique). COMPARISON: None FINDINGS: CT ABDOMEN AND PELVIS FINDINGS: Upper GI tract: Unremarkable. Liver: The visualized hepatic parenchyma is unremarkable. Gallbladder: Biliary System: Unremarkable for age. Spleen: Normal size. Pancreas: Unremarkable. Adrenal glands: Unremarkable. Kidneys/ureters: No simple left renal cysts. No calculi or hydronephrosis.. Veins: Lymph nodes: No adenopathy. Small bowel: Diffuse wall thickening and submucosal hyperemia involving the rectosigmoid. There is small focus of contrast extravasation within the sigmoid (series 2 image 115), concerning for active extravasation.. Colon: Normal caliber; no wall thickening. Appendix: No findings of appendicitis. Peritoneum: No free air or fluid. : Urinary bladder is unremarkable.. Bones: Unremarkable for age. Soft tissue including the abdominal wall: No acute abnormality. Additional comments: None. CTA ABDOMEN AND PELVIS FINDINGS: ABDOMINAL AORTA: Diffuse atherosclerotic calcification, without evidence of aneurysm or dissection.. AORTIC BRANCHES: Right renal artery: 2 right renal arteries. Widely patent. Left renal artery: 2 left renal arteries. Widely patent. Celiac artery: Widely patent. Superior mesenteric artery: Widely patent. Inferior mesenteric artery: Widely patent. PELVIC ARTERIES: RIGHT PELVIS: Common iliac: Widely patent. External iliac: Widely patent. Internal iliac: Widely patent. Common femoral artery: Widely patent. LEFT PELVIS: Common iliac: Widely patent. External iliac: Widely patent. Internal iliac: Widely patent. Common femoral artery: Widely patent. Additional comments: None. CT/CTA Abd/Pelvis W/WO Contrast IMPRESSION: Diffuse rectosigmoid wall thickening and hyperemia, with small focus of active extravasation, compatible with acute GI bleed. Diffuse atherosclerotic calcification without evidence of dissection. Red Alert: The critical information above was relayed directly by me by telephone to Koby Bray on 07/28/2024 at 9:04 pm with readback verification. Electronically Signed By: Lobito fernandes 07/28/2024 21:04 Reading Location: [facility]
--- NOTE | 2024-07-28 18:44 | PCM.HP.STD ---
HPI - General General Date of Admission: 07/28/24 Date of Service: 07/28/24 Chief Complaint: BRBPR, abdominal cramping. HPI Narrative The patient is a 69 y/o F w/ PMHx: EtOH abuse (3-4 beers daily), HTN, HLD, Hx Hyperthyroidism s/p thyroidectomy w/ resulting Hypothyroidism, COPD/Asthma, Former tobacco use, Hx VTE who presents to the [facility] ED on 07/28/2024 with history of significant rectal bleeding with clots starting the day prior and continuing with previous colonoscopy noted to be 6 days previously with multiple polypectomies at that time on Eliquis for history of VTE with hold on her Eliquis prior to procedure however she did restart it since then noting that the amount of blood loss and clots has significantly increased since initial onset with associated mild abdominal cramping, lightheadedness and dizziness prompting ED evaluation. She states she has not taken her Eliquis today. Workup in the ED included T97.4, heart rate 95, BP 115/92, respiratory rate 18, 97% on room air with significant positive orthostatic with BP decreasing down to 70/55, CBC with WBC 8.3, hemoglobin 12.4, MCV 90.4, platelets 305 without marked shift, unremarkable coags, BMP with potassium 2.8, chloride 94, BUN/creatinine 12/0.71, GFR 93, glucose 119, CTA abdomen pelvis with and without contrast pending upon request evaluation of patient. ED did discuss case with Dr. Xiong who noted intention for endoscopy with requested bowel prep. Discussed case upon patient presentation with Dr. Xiong and he is amenable to patient being admitted prior to CT results as regardless if there are findings he would plan to continue to admit. In the ED patient had several syncopal events while passing large clots with significant hypotension including a systolic in the 40s requiring Trendelenburg and more aggressive IV fluids. Initially type and screen had been initiated however given these events type and cross 2 units ordered per ED physician and will be administered. CT scan is not read but does appear as if there is active extravasation which GI is going to be made aware of per discussion with the ED. Did discuss precarious nature of patient current presentation and Dr. Parada will plan to come to the hospital emergently. [facility] Medical History Alcohol abuse Wears glasses Cancer Post-menopausal Alcohol use Arthritis Thyroid disease High cholesterol Excessive bleeding Former smoker COPD (chronic obstructive pulmonary disease) Asthma Shortness of breath on exertion History of edema History of echocardiogram History of stress test Hypertension Cardiology follow-up encounter History of irregular heartbeat Hx of pilonidal cyst Vitamin D deficiency Lower extremity edema Hyperthyroidism Chest tightness Familial hypercholesteremia DVT (deep venous thrombosis) MVP (mitral valve prolapse) Benign essential HTN Blood in feces Home Medications ?Medication ?Instructions ?Recorded ?Last Taken ?Type albuterol sulfate 90 mcg/actuation 1 inh inhalation Q4H PRN shortness 09/27/23 Unknown History aerosol inhaler of breath or wheezing apixaban 5 mg tablet 5 mg PO BID 09/27/23 07/27/24 History carvedilol 25 mg tablet 25 mg PO BID 09/27/23 07/28/24 History dorzolamide 22.3 mg-timolol 6.8 1 drp ophthalmic (eye) BID 09/27/23 07/28/24 History mg/mL eye drops hydrochlorothiazide 25 mg tablet 25 mg PO DAILY 09/27/23 07/28/24 History latanoprost 0.005 % eye drops 1 drp ophthalmic (eye) QHS 09/27/23 07/27/24 History levothyroxine 112 mcg capsule 112 mcg PO MOTUWETHFRSA 09/27/23 07/28/24 History rosuvastatin 20 mg tablet 20 mg PO QHS 09/27/23 07/27/24 History brimonidine 0.2 % eye drops 1 drp ophthalmic (eye) TID 07/20/24 07/28/24 History cholecalciferol (vitamin D3) 125 125 mcg PO DAILY 07/20/24 07/28/24 History mcg (5,000 unit) tablet (Vitamin D3) Allergy/AdvReac Type Severity Reaction Status Date / Time moxifloxacin (From Avelox) Allergy Intermediate Other Verified 07/28/24 16:33 adopted Surgical History History of cardiac catheterization Hx of thyroidectomy Hx of detached retina repair Social History household members: none Smoking Status: Former smoker quit date: 11/10/19 alcohol intake: current alcohol intake frequency: 3 or more drinks per day Alcohol type: beer substance use type: does not use ROS ROS Narrative Admission Review of Systems: CONSTITUTIONAL: No weight loss, fever, chills, + weakness or fatigue. HEENT: + Lightheadedness, dizziness, syncopal events in the ED. Eyes: No visual loss, blurred vision, double vision or yellow sclerae. Ears, Nose, Throat: No hearing loss, sneezing, congestion, runny nose or sore throat. SKIN: No rash or itching, lesions, wounds. CARDIOVASCULAR: + Lightheadedness, dizziness, syncopal events in the ED. No chest pain, chest pressure or chest discomfort, palpitations, edema, orthopnea. RESPIRATORY: No shortness of breath, cough or sputum, wheezing, hemoptysis. GASTROINTESTINAL: + Bright red blood per rectum, abdominal cramping. No anorexia, nausea, vomiting, melena. GENITOURINARY: No dysuria, frequency, urgency or retention. NEUROLOGICAL: + Lightheadedness, dizziness, syncopal events in the ED. No headache, paralysis, ataxia, numbness or tingling in the extremities, focal weakness, change in bowel or bladder control, seizure. MUSCULOSKELETAL: + muscle, back pain, joint pain or stiffness. HEMATOLOGIC: No anemia. Current bright red blood per rectum upon presentation, easy history of bleeding/bruising given NOAC history. LYMPHATICS: No enlarged nodes. No history of splenectomy. PSYCHIATRIC: No history of depression or anxiety. ENDOCRINOLOGIC: No reports of sweating, cold or heat intolerance. No polyuria or polydipsia. ALLERGIES: No history of asthma, hives, eczema or rhinitis. Vital Signs Vital Signs Vital Signs: 07/28/24 16:34 07/28/24 17:31 07/28/24 18:36 Temperature 97.4 F L Temperature Source Temporal Pulse Rate 95 84 Pulse Rate [Lying] 86 Pulse Rate [Sitting (for 1 minute prior to obtaining)] 84 Pulse Rate [Standing (for 1 minute prior to obtaining)] 90 Respiratory Rate 18 13 Blood Pressure 115/92 H 134/84 H Blood Pressure [Lying] 139/91 H Blood Pressure [Sitting (for 1 minute prior to obtaining)] 124/92 H Blood Pressure [Standing (for 1 minute prior to obtaining)] 70/55 L Blood Pressure Mean 99 100 Blood Pressure Mean [Lying] 107 Blood Pressure Mean [Sitting (for 1 minute prior to obtaining)] 102 Blood Pressure Mean [Standing (for 1 minute prior to obtaining)] 60 Pulse Ox 97 98 Oxygen Delivery Method Room Air Weight Weight: 162 lb Body Mass Index (BMI) 26.9 Physical Exam Narrative Physical Examination: General: Awake, alert, oriented x 3, currently alert, recent near syncopal event suspected possibly vasovagal given passed a large clot, currently in Trendelenburg blood pressure improved, laying in ED bed, very pale appearing. Skin: Pale color, normal turgor, no icterus, no cyanosis. HEENT: AT/NC, EOMI, PERRLA, moderately dry MM, no carotid bruits or JVD noted. Lungs: Mild diminished, greater bases, poor effort, no rales, ronchi or wheezing. Heart: Regular rate and rhythm; no gallop, rub audible. Abdomen: Soft, NTTP, ND, hyperactive BS, no appreciated HSM. Extremities: No cyanosis, clubbing, or edema. Neurological: Patient awake, alert, oriented as noted, cognitive function currently improved but has had serial episodes of near syncope/syncope while in the ED especially while passing large bright red blood clots pupils equally reactive to light and accommodation, cranial nerves currently gross normal, moving all 4 extremities, no focal deficits, strength severely globally decreased Psychiatric: Affect appears no fatigued, pale appearing, acute evidence of depressive or anxiety feelings. Results Lab / Micro Data 07/28/24 18:47 07/28/24 16:50 Labs: Laboratory Results - last 24 hr 07/28/24 16:50: WBC 8.3, RBC 3.84 L, Hgb 12.4, Hct 34.7 L, MCV 90.4, MCH 32.3 H, MCHC 35.7, RDW Std Deviation 44.0 H, RDW Coeff of Luis Fernando 13.3, Plt Count 304, MPV 9.8, Immature Gran % (Auto) 0.600, Neut % (Auto) 70.8 H, Lymph % (Auto) 18.3 L, Bledsoe % (Auto) 9.1, Eos % (Auto) 0.5, Baso % (Auto) 0.7, Absolute Neuts (auto) 5.9, Absolute Lymphs (auto) 1.53, Nucleated RBC % 0, PT 13.6, INR 1.0, APTT 28.9, Sodium 136, Potassium 2.8 L, Chloride 94 L, Carbon Dioxide 28.6, Anion Gap 13, BUN 12, Creatinine 0.71, Estim Creat Clear Calc 67.57, Est GFR (MDRD) Non-Af 93, BUN/Creatinine Ratio 16.2, Glucose 119 H, Calcium 9.3, Blood Type A NEGATIVE, Antibody Screen NEGATIVE Assessment & Plan Assessment/Plan (1) GI bleed: PLAN: Plan The patient is a 69 y/o F w/ PMHx: EtOH abuse (3-4 beers daily), HTN, HLD, Hx Hyperthyroidism s/p thyroidectomy w/ resulting Hypothyroidism, COPD/Asthma, Former tobacco use, Hx VTE who presents to the [facility] ED on 07/28/2024 with history of significant rectal bleeding with clots starting the day prior and continuing with previous colonoscopy noted to be 6 days previously with multiple polypectomies at that time on Eliquis for history of VTE with hold on her Eliquis prior to procedure however she did restart it since then noting that the amount of blood loss and clots has significantly increased since initial onset with associated mild abdominal cramping, lightheadedness and dizziness prompting ED evaluation. #1. Acute Lightheadedness/dizziness w/ Syncopal events with transient hypotension (concern acute hemorrhagic shock) with abdominal cramping w/ significant bright red blood per rectum with Acute GI Bleed w/ resultant Acute Blood Loss following recent significant polypectomies 07/22/2024 likely in part secondary to chronic anticoagulant NOAC which was recently restarted: most recently noted hemoglobin 12/09/2023 at 13.8 now down to 12.4 upon current presentation, will admit to the ICU, will consult ICU physician per protocol, will maintain on IVFs, continue to hold Eliquis therapy, will obtain serial H+Hs, T+S w/ cross for PRBC administration already obtained per ED with plan for 2 U PRBC to be immediately initiated given worsening status, will maintain on IV PPI, NPO status, initially had planned to initiate bowel prep per discussion with gastroenterology; however, given worsening status may require lower endoscopy more emergently, CTA abdomen pending upon evaluation however gastroenterology notes that regardless of results would plan admission thus we will proceed. Although lower, following recent intervention, until assure this is the case will maintain on prophylactic Rocephin given alcohol abuse history. #2. Hypokalemia: Admission K+ 2.8, magnesium level requested, supplementation given, repeat level in AM. #3. Chronic COPD/asthma: Per current list on any routine inhalers, PRN albuterol, HOB, IS parameters. #4. Chronic Kidney Disease Stage II versus stage I: Admission BUN/Cr 12/0.71, GFR 93, most recent previously noted 88 thus uncertain if stage I versus stage II is not much trending available, baseline renal function 0.7, repeat BMP in AM. #5. Hypertension: Given significant orthostasis with acute presentation will temporally hold patient Coreg, hydrochlorothiazide and resume once clinically appropriate. #6. Hyperlipidemia: Will continue patient on statin therapy. #7. History of hyperthyroidism status post thyroidectomy with resulting hypothyroidism: Will continue patient home levothyroxine regimen. #8. Glaucoma unclear type: Will continue patient eyedrop aggressive regimen. #9. History of VTE: Patient with previous history of DVT, holding Eliquis given acute presentation as noted above. #10. Former tobacco use: Encourage continued tobacco cessation. #11. EtOH Abuse: Patient notes routine consumption of 3-4 beers per day. Will maintain on CIWA protocol, MVI, thiamine and folic acid. Magnesium and phosphorus requested. Case management consulted. #12. DVT prophylaxis: SCDs. #13. CODE status: Full Code status. Charges/Coding Visit Charges Inpatient E&M: 16121 Init Hosp L3
[2024-07-28] MEDS: 0.9% Normal Saline (1000mL) 1,000 ML 999 ML IV (19:02)
[2024-07-28 19:03] LABS: Hematocrit 29.1 % (37-47); Hemoglobin 10.1 g/dL (12.0-15.0)
--- NOTE | 2024-07-28 19:37 | EX.PCM.CON.G ---
HPI Consult Data Date of Consult: 07/28/24 HPI Narrative Reason for Consultation: GI bleed HPI Narrative: LETI LOZOYA, is a 69 F who presents who originally presented as a consultation to [facility] established 9.23.24 w/ bright red blood in her stool for 6-7 months. She had no hx of colonoscopy and did not want to have one.. Hx of thyroid cancer. She presented back as an outpatient for OV 1.2.24 where she admitted to have bright red blood streaking when she wipes. She feels ready to have a colonoscopy at this time. She denies abd pain, n/v, constipation, diarrhea, melena, loss of appetite or unintentional weight loss. 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 She takes Eliquis 5 mg twice a day. She underwent colonoscopy on 07/22/2024 and today she called in to the office because she was having some lower GI bleeding. She was told to go to the emergency room. In the emergency room initially she was normotensive without tachycardia. However when orthostatics were attempted she became hypotensive and tachycardic. Her initial hemoglobin was 12.5 and on repeat it is 10.1. She last took her Eliquis last night. Findings from her colonoscopy: The perianal and digital rectal examinations were normal. Two sessile polyps were found in the sigmoid colon and transverse colon. The polyps were 2 to 3 mm in size. These polyps were removed with a piecemeal technique using a hot snare. Resection and retrieval were complete. Coagulation for destruction of remaining portion of lesion using argon plasma at 0.3 liters/minute and 20 prater was successful. Estimated blood loss was minimal. Area was tattooed with an injection of 5 mL of Miriam ink. To close a defect after polypectomy, one hemostatic clip was successfully placed. 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 There was no bleeding at the end of the procedure. Multiple small and large-mouthed diverticula were found in the recto-sigmoid colon, sigmoid colon and descending colon. Four sessile polyps were found in the splenic flexure, hepatic flexure and ascending colon. The polyps were 1 to 2 mm in size. These polyps were removed with a hot snare. Resection and retrieval were complete. Verification of patient identification for the specimen was done. Estimated blood loss was minimal. Three sessile polyps were found in the cecum. The polyps were 10 mm in size. These polyps were removed with a cold biopsy forceps. Resection and retrieval were complete. Verification of patient identification for the specimen was done. Estimated blood loss was minimal. Impression: - Two 2 to 3 mm polyps in the sigmoid colon and in the transverse colon, removed piecemeal using a hot snare. Resected and retrieved. Treated with argon plasma coagulation (APC). Tattooed. - Diverticulosis in the recto-sigmoid colon, in the sigmoid colon and in the descending colon. - Four 1 to 2 mm polyps at the splenic flexure, at the hepatic flexure and in the ascending colon, removed with a hot snare. Resected and retrieved. - Three 10 mm polyps in the cecum, removed with a cold biopsy forceps. Resected and retrieved. [facility] Medical History (Updated 07/28/24 @ 19:[address] Josefina Ventura MD) Alcohol abuse Wears glasses Cancer Post-menopausal Alcohol use Arthritis Thyroid disease High cholesterol Excessive bleeding Former smoker COPD (chronic obstructive pulmonary disease) Asthma Shortness of breath on exertion History of edema History of echocardiogram History of stress test Hypertension Cardiology follow-up encounter History of irregular heartbeat Hx of pilonidal cyst Vitamin D deficiency Lower extremity edema Hyperthyroidism Chest tightness Familial hypercholesteremia DVT (deep venous thrombosis) MVP (mitral valve prolapse) Benign essential HTN Blood in feces Home Medications ?Medication ?Instructions ?Recorded ?Last Taken ?Type albuterol sulfate 90 mcg/actuation 1 inh inhalation Q4H PRN shortness 09/27/23 Unknown History aerosol inhaler of breath or wheezing apixaban 5 mg tablet 5 mg PO BID 09/27/23 07/27/24 History carvedilol 25 mg tablet 25 mg PO BID 09/27/23 07/28/24 History dorzolamide 22.3 mg-timolol 6.8 1 drp ophthalmic (eye) BID 09/27/23 07/28/24 History mg/mL eye drops hydrochlorothiazide 25 mg tablet 25 mg PO DAILY 09/27/23 07/28/24 History latanoprost 0.005 % eye drops 1 drp ophthalmic (eye) QHS 09/27/23 07/27/24 History levothyroxine 112 mcg capsule 112 mcg PO MOTUWETHFRSA 09/27/23 07/28/24 History rosuvastatin 20 mg tablet 20 mg PO QHS 09/27/23 07/27/24 History brimonidine 0.2 % eye drops 1 drp ophthalmic (eye) TID 07/20/24 07/28/24 History cholecalciferol (vitamin D3) 125 125 mcg PO DAILY 07/20/24 07/28/24 History mcg (5,000 unit) tablet (Vitamin D3) Allergy/AdvReac Type Severity Reaction Status Date / Time moxifloxacin (From Avelox) Allergy Intermediate Other Verified 07/28/24 16:33 Family History adopted Surgical History History of cardiac catheterization Hx of thyroidectomy Hx of detached retina repair Social History household members: none Smoking Status: Former smoker quit date: 11/10/19 alcohol intake: current alcohol intake frequency: 3 or more drinks per day Alcohol type: beer substance use type: does not use ROS Constitutional Constitutional: Denies fatigue, fever(s), poor appetite, weight gain or weight loss Gastrointestinal Gastrointestinal: Denies belching, bloating, change in bowel habits, change in stool character, chewing difficulty, coffee ground emesis, constipation, cramping, diarrhea, dyspepsia, dysphagia, early satiety, excessive flatus, fecal incontinence, heartburn, hematemesis, hematochezia, hemorrhoids, loose stools, melena, nausea, odynophagia, rectal bleeding, tenesmus, vomiting or weight changes Physical Exam Const alert, oriented x3, no apparent distress and healthy appearing General Appearance: cooperative GI normal to inspection, nondistended, normoactive bowel sounds, soft to palpation, non-tender and non-distended Percussion: normal to percussion Rectal Exam: deferred Lab / Micro Data 07/28/24 18:47 07/28/24 16:50 Labs: Laboratory Results - last 24 hr 07/28/24 16:50: WBC 8.3, RBC 3.84 L, Hgb 12.4, Hct 34.7 L, MCV 90.4, MCH 32.3 H, MCHC 35.7, RDW Std Deviation 44.0 H, RDW Coeff of Luis Fernando 13.3, Plt Count 304, MPV 9.8, Immature Gran % (Auto) 0.600, Neut % (Auto) 70.8 H, Lymph % (Auto) 18.3 L, Baker % (Auto) 9.1, Eos % (Auto) 0.5, Baso % (Auto) 0.7, Absolute Neuts (auto) 5.9, Absolute Lymphs (auto) 1.53, Nucleated RBC % 0, PT 13.6, INR 1.0, APTT 28.9, Sodium 136, Potassium 2.8 L, Chloride 94 L, Carbon Dioxide 28.6, Anion Gap 13, BUN 12, Creatinine 0.71, Estim Creat Clear Calc 67.57, Est GFR (MDRD) Non-Af 93, BUN/Creatinine Ratio 16.2, Glucose 119 H, Calcium 9.3, Blood Type A NEGATIVE, Antibody Screen NEGATIVE, Crossmatch See Detail 07/28/24 18:47: Hgb 10.1 L, Hct 29.1 L Assessment & Plan Assessment/Plan (1) GI bleed: (2) Transient hypotension: PLAN: 69-year-old with clotting disorder on Eliquis status post colonoscopy with multiple polyps removed all of which were tubular adenomas and discovered to have significant diverticular disease presents with lower GI bleeding. Likely this is post polypectomy bleed. However she has been having lower GI bleeding for the last 6 or 7 months that I think was secondary to very large polyp versus hemorrhoid versus diverticular bleeding. She will need to undergo emergent colonoscopy. She was explained alternatives, risk and benefits including withstanding bleeding, infection, sepsis, perforation, need for emergent surgery and . She will have an ASA of 3. Charges/Coding Visit Charges Inpatient E&M: 29895 Init Hosp L3
--- NOTE | 2024-07-28 20:17 | PCM.PRE.AN2 ---
ASA Classification* ASA Classification ASA Classification: 3 Assessment & Plan Anesthesia* Anesthesia Assessment Anesthesia Assessment: Discussed sedation and/or anesthesia options, risks, benefits, and alternatives with patient/parents/legal guardian/POA. Questions invited. The patient/parents/legal guardian/POA seems to understand and agrees to proceed with anesthesia plan. Reviewed the physical assessment, medical history, allergy history and patient home medications list prior to surgery/procedure/anesthetic and documented any changes. Performed airway and anesthesia risk assessments. Anesthesia Type Anesthesia Type: MAC History Source History Obtained from:: Patient and Chart Anesthesia Focused Assessment* Temperature: 99.1 F Pulse Rate: 78 Blood Pressure: 127/82 Respiratory Rate: 16 Pulse Ox: 96 Oxygen Delivery Method: Room Air Airway Assessment Mouth opens: >3 cm Mallampati Score: II Focused Labs Anesthesia Preop lab: CBC WBC 8.3 K/mm3 (4.4-11.0) 07/28/24 16:50 07/28/24 RBC 3.84 M/mm3 (4.2-5.4) L 07/28/24 16:50 07/28/24 Hgb 10.1 g/dL (12.0-15.0) L 07/28/24 18:47 07/28/24 Hct 29.1 % (37-47) L 07/28/24 18:47 07/28/24 Plt Count 304 K/mm3 (150-450) 07/28/24 16:50 07/28/24 CHEMISTRY Potassium 2.8 mmol/L (3.3-5.1) L 07/28/24 16:50 07/28/24 Sodium 136 mmol/L (133-145) 07/28/24 16:50 07/28/24 BUN 12 mg/dL (4-19) 07/28/24 16:50 07/28/24 Creatinine 0.71 mg/dL (0.70-1.20) 07/28/24 16:50 07/28/24 Glucose 119 mg/dL (70-99) H 07/28/24 16:50 07/28/24 TSH 1.44 uIU/mL (0.358-3.74) 03/31/15 09:05 03/31/15 COAG PT 13.6 SECONDS (11.7-14.9) 07/28/24 16:50 07/28/24 Pre-Assessment Diagnosis/Proposed Procedure Planned Operative Procedure(s): Colonoscopy Anesthesia History Anesthesia History - sports information director: Anesthesia History - sports information director Hx Hospitalization No 07/20/24 12:31 Any Problems With Anesthesia No 07/28/24 19:22 Cholinesterase deficiency No 07/28/24 19:22 You/Your Family Experience No 07/28/24 19:22 fever (hyperthermia) with Relationship Recent Exposure to Contagious No 07/28/24 19:22 Disease Does patient have nerve No 07/28/24 19:22 stimulator Patient instructed to have device shut off --Does patient have Pacemaker No 07/28/24 19:22 or ICD? When Was Last Pacemaker Check QUESTION #4 FULL TEXT: You/Your Family Experience fever (hyperthermia) with Anesthesia Last Oral Intake Last Oral intake: Last Oral Intake NPO since 11:00 07/28/24 19:22 Meds taken in AM with sips of Yes 07/28/24 19:22 water? Meds patient instructed to Levothyroxine, 07/28/24 19:22 take am of surgery hydrochlorothiazide, vitamin D, carvedilol PONV PONV - sports information director: PONV - sports information director Female HX of Motion Sickness HX of N/V After Surgery Non-Smoker Duration of Surgery greater than 60 minutes Number of Risk Factors PONV Score Height & Weight Height & Weight: Anesthesia: Height & Weight Height 5 ft 5 in 07/28/24 19:22 Weight: 73.482 kg 07/28/24 19:22 Body Mass Index (BMI) 26.9 07/28/24 19:22 Respiratory Assessment Respiratory Assessment - sports information director: Respiratory Tract Infection Hx - sports information director Hx Respiratory Tract Infection No 07/28/24 19:22 STOP Sleep Apnea STOP Sleep Apnea - sports information director: STOP Sleep Apnea - sports information director Hx Hypertension Yes 07/28/24 19:22 Hx Sleep Apnea No 07/28/24 19:22 CPAP BIPAP Do you snore loudly (louder No 07/28/24 19:22 than talking or can be heard Do you often feel tired/ No 07/28/24 19:22 fatigued/ sleepy during daytime? Has anyone observed you stop No 07/28/24 19:22 breathing during sleep? STOP Results Negative 07/28/24 19:22 QUESTION #5 FULL TEXT : Do you snore loudly (louder than talking or can be heard through closed doors)? 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 Specify any problems Hx of Preganancy in last 3 Months Nurse Filling Out Transfusion & Questions: Date: Time: Patient unable to answer at this time (ie. confused, unrespo /Reproduction History /Reproductive History - sports information director: /Reproductive Hx- sports information director Hx Now No 07/28/24 19:22 Gestational Age (in weeks): EDC: Hx Hx Para Hx Section SAB No 07/28/24 19:22 PFSH Medical History Alcohol abuse Wears glasses Cancer Post-menopausal Alcohol use Arthritis Thyroid disease High cholesterol Excessive bleeding Former smoker COPD (chronic obstructive pulmonary disease) Asthma Shortness of breath on exertion History of edema History of echocardiogram History of stress test Hypertension Cardiology follow-up encounter History of irregular heartbeat Hx of pilonidal cyst Vitamin D deficiency Lower extremity edema Hyperthyroidism Chest tightness Familial hypercholesteremia DVT (deep venous thrombosis) MVP (mitral valve prolapse) Benign essential HTN Blood in feces Home Medications ?Medication ?Instructions ?Recorded ?Last Taken ?Type albuterol sulfate 90 mcg/actuation 1 inh inhalation Q4H PRN shortness 09/27/23 Unknown History aerosol inhaler of breath or wheezing apixaban 5 mg tablet 5 mg PO BID 09/27/23 07/27/24 History carvedilol 25 mg tablet 25 mg PO BID 09/27/23 07/28/24 History dorzolamide 22.3 mg-timolol 6.8 1 drp ophthalmic (eye) BID 09/27/23 07/28/24 History mg/mL eye drops hydrochlorothiazide 25 mg tablet 25 mg PO DAILY 09/27/23 07/28/24 History latanoprost 0.005 % eye drops 1 drp ophthalmic (eye) QHS 09/27/23 07/27/24 History levothyroxine 112 mcg capsule 112 mcg PO MOTUWETHFRSA 09/27/23 07/28/24 History rosuvastatin 20 mg tablet 20 mg PO QHS 09/27/23 07/27/24 History brimonidine 0.2 % eye drops 1 drp ophthalmic (eye) TID 07/20/24 07/28/24 History cholecalciferol (vitamin D3) 125 125 mcg PO DAILY 07/20/24 07/28/24 History mcg (5,000 unit) tablet (Vitamin D3) Allergy/AdvReac Type Severity Reaction Status Date / Time moxifloxacin (From Avelox) Allergy Intermediate Other Verified 07/28/24 16:33 Family History adopted Surgical History History of cardiac catheterization Hx of thyroidectomy Hx of detached retina repair Social History household members: none Smoking Status: Former smoker quit date: 11/10/19 alcohol intake: current alcohol intake frequency: 3 or more drinks per day Alcohol type: beer substance use type: does not use Review of Systems (Anesthesia) ROS Narrative System reviewed and no additional complaints, except as documented. Physical Exam Const alert and oriented x3 HEENT dentition normal Resp normal respiratory effort Auscultation: clear to auscultation bilaterally Cardio regular rate and regular rhythm Neuro oriented x3 and moves all extremities
[2024-07-28] MEDS: Epinephrine (1 mg/ml) 1 MG/ML VIAL (20:50)
[2024-07-28] MEDS: 0.9% Normal Saline (Pres. free 10 ML Vial (20:50)
--- NOTE | 2024-07-28 21:05 | OP.CCLET_ITS ---
07/28/2024 Kyra Gonzales Re : Flexible Sigmoidoscopy procedure for Eleazar Gonzales This procedure was performed on Sunday, July 28, 2024. My impressions and recommendations are as follows: Impressions : - A single (solitary) ulcer in the sigmoid colon. Injected. Treated with argon plasma coagulation (APC). Clips were placed. 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 - No specimens collected. Recommendations : - Clear liquid diet. My findings are described in the full procedure note, which is enclosed. If I can be of further assistance, please feel free to contact me at . Sincerely, Elmo Xiong, 07/28/2024 9:05:03 PM This report has been signed electronically.
--- NOTE | 2024-07-28 21:05 | OP.FLEXSIG_ITS ---
Patient Name: Eleazar Garcia Procedure Date: 07/28/2024 7:51 PM Date of : 1955 Age: 69 Procedure: Flexible Sigmoidoscopy Indications: Hematochezia Providers: Elmo Xiong DO Referring MD: Elmo Xiong DO Medicines: Monitored Anesthesia Care Patient Profile: This is a 69 year old female. Refer to note in patient chart for documentation of history and physical. Last Colonoscopy: 1 week ago. Complications: No immediate complications. Procedure: Pre-Anesthesia Assessment: - Prior to the procedure, a History and Physical was performed, and patient medications and allergies were reviewed. The patient is competent. The risks and benefits of the procedure and the sedation options and risks were discussed with the patient. All questions were answered and informed consent was obtained. Patient identification and proposed procedure were verified by the physician in the pre-procedure area. Mental Status Examination: alert and oriented. Airway Examination: normal oropharyngeal airway and neck mobility. Respiratory Examination: clear to auscultation. CV Examination: normal. Prophylactic Antibiotics: The patient does not require prophylactic antibiotics. Prior Anticoagulants: The patient has taken no anticoagulant or antiplatelet agents except for NSAID medication. ASA Grade Assessment: II - A patient with mild systemic disease. After reviewing the risks and benefits, the patient was deemed in satisfactory condition to undergo the procedure. The anesthesia plan was to use monitored anesthesia care (MAC). Immediately prior to administration of medications, the patient was re-assessed for adequacy to receive sedatives. The heart rate, respiratory rate, oxygen saturations, blood pressure, adequacy of pulmonary ventilation, and response to care were monitored throughout the procedure. The physical status of the patient was re-assessed after the procedure. After obtaining informed consent, the endoscope was passed under direct vision. Throughout the procedure, the patient's blood pressure, pulse, and oxygen saturations were monitored continuously. The Colonoscope was introduced through the anus and advanced to the sigmoid colon. After obtaining informed consent, the endoscope was passed under direct vision. Throughout the procedure, the patient's blood pressure, pulse, and oxygen saturations were monitored continuously.The flexible sigmoidoscopy was accomplished without difficulty. The patient tolerated the procedure well. Scope In: 8:29:11 PM Scope Out: 8:58:24 PM Total Procedure Duration Time 0 hours 29 minutes 13 seconds Findings: A single (solitary) twenty mm ulcer was found in the sigmoid colon. Oozing was present. Stigmata of recent bleeding were present. Area was successfully injected with 20 mL of a 0.1 mg/mL solution of epinephrine for hemostasis. Coagulation for hemostasis using argon plasma at 0.3 liters/minute and 20 prater was successful. To prevent bleeding post-intervention, five hemostatic clips were successfully placed. Clip patient services technician: [employer]. There was no bleeding at the end of the procedure. Impression: - A single (solitary) ulcer in the sigmoid colon. Injected. Treated with argon plasma coagulation (APC). Clips were placed. Clip patient services technician: [employer]. - No specimens collected. Recommendation: - Clear liquid diet. Procedure Code(s): --- Professional --- 59087, Sigmoidoscopy, flexible; with control of bleeding, any method CPT copyright 2021 [employer]. All rights reserved. The codes documented in this report are preliminary and upon barn boss review may be revised to meet current compliance requirements. Elmo Xiong DO 07/28/2024 9:05:03 PM This report has been signed electronically. Number of Addenda: 0 Note Initiated On: 07/28/2024 7:51 PM
[2024-07-28 21:06] LABS: Magnesium 2.1 mg/dL (1.5-2.2); Phosphorus 3.6 mg/dL (2.7-4.5)
--- NOTE | 2024-07-28 21:40 | PCM.POST.ANE ---
Anesthesia: Postop Eval I Current Vital Signs Temperature: 96.8 F Pulse Rate: 84 Blood Pressure: 148/79 Respiratory Rate: 14 Pulse Ox: 98 Oxygen Delivery Method: Room Air Assessment Airway patent: Yes Spontaneous unlabored respirations: Yes Mental status: Awake and Calm nausea: Yes Vomiting: No Anesthesia Complication: No Fluid Hydration Crystalloid volume administer (ml): 600 Blood Product volume administered (ml): 350 Total IV fluid infused: 950 Progress Note Post-operative progress note: ICU report given to ICU nurses. Patient VSS Anesthesia document: Postop Eval 1 completed: Yes
--- NOTE | 2024-07-28 21:41 | PCM.POSTANE2 ---
Anesthesia Postop Eval I Sum Postop Eval Completion status Anesthesia document: Postop Eval 1 completed: Yes Anesthesia Postop Eval I Summary Anesthesia Postop Eval I Summary: Anesthesia Postop Eval I: Assessment Summary Airway patent Yes 07/28/24 21:41 Spontaneous unlabored Yes 07/28/24 21:41 respirations Mental status Awake,Calm 07/28/24 21:41 nausea Yes 07/28/24 21:41 Vomiting No 07/28/24 21:41 Anesthesia Postop Eval I: Fluid Summary Crystalloid volume administer 600 07/28/24 21:41 (ml) Colloids volume administered ( ml) Blood Product volume 350 07/28/24 21:41 administered (ml) Total IV fluid infused 950 07/28/24 21:41 Anesthesia Postop Eval I: Summary Notes Anesthesia Complication No 07/28/24 21:41 Anesthesia Complication Comment: Post-operative progress note ICU report given 07/28/24 21:41 to ICU nurses. Patient VSS Anesthesia: Postop Eval II Evaluation Mental status: Awake and Calm Pain Level: 1 nausea: Yes Vomiting: No Progress Note Post-operative progress note: 4 mg of Zofran given to the patient prior to transport for nausea Complications Anesthesia Complication: No
[2024-07-28 21:52] LABS: Hematocrit 29.9 % (37-47); Hemoglobin 10.3 g/dL (12.0-15.0)
[2024-07-28] MEDS: 0.9% Normal Saline (1000mL) 1,000 ML 100 ML IV (21:57)
[2024-07-28] MEDS: Ceftriaxone 1 GM/50 ML BAG IV (22:28)
[2024-07-28] MEDS: Pantoprazole Sodium 80 MG in 0.9% Normal Saline (50mL Bag) 15 ML 420 MG IV BOLUS (22:28)
[2024-07-28] MEDS: Pantoprazole Sodium 80 MG in 0.9% Normal Saline (100mL Bag) 80 ML 10 MG CONT INF (22:40)
[2024-07-28] MEDS: 0.9% Normal Saline (250mL Bag) 250 ML 15 ML IV ×2 (22:40→22:41)
[2024-07-28] MEDS: Latanoprost 0.005% 1 Bottle 1 DRP OPHTHALMIC (22:41)
[2024-07-28] MEDS: BRIMONIDINE 0.2% 5ML BOTTLE 1 DRP OPHTHALMIC (22:44)
[2024-07-28] MEDS: Dorzolamide HCL/Timolol 10 ml Bottle 1 DRP OPHTHALMIC (22:45)
[2024-07-28] MEDS: Atorvastatin Calcium 40 MG Tablet PO (22:49)
[2024-07-28] MEDS: Potassium Chloride Oral Tablet 20 MEQ 40 MEQ PO (22:52)
--- NOTE | 2024-07-28 23:29 | PCMCONS.TICU ---
HPI Consult Data Date of Consult: 07/28/24 HPI Narrative Reason for Consultation: GI Bleed HPI Narrative: 69Y F PMH EtOH abuse (3-4 beers daily), HTN, HLD, Hx Hyperthyroidism s/p thyroidectomy w/ resulting Hypothyroidism, COPD/Asthma, Former tobacco use, Hx VTE who was admitted today with reports of significant rectal bleeding & clots starting yesterday. Pt with recent colonoscopy ~6 days ago and sp multiple polypectomies at that time. Pt is also on Eliquis for history of VTE. Blood loss a/w mild abdominal cramping, lightheadedness and dizziness prompting ED evaluation. In the ED patient had several syncopal events while passing large clots with significant hypotension including a systolic in the 40s requiring Trendelenburg and more aggressive IV fluids. CTA with active extravasation. GI was consulted and took patient for emergent sigmoidoscopy where a single ulder in the sigmoid colon was noted. It was injected, treated with APC & clips were placed. She subsequently was admitted to the ICU and I was consulted for on-going critical care co-management. [facility] Medical History Alcohol abuse Wears glasses Cancer Post-menopausal Alcohol use Arthritis Thyroid disease High cholesterol Excessive bleeding Former smoker COPD (chronic obstructive pulmonary disease) Asthma Shortness of breath on exertion History of edema History of echocardiogram History of stress test Hypertension Cardiology follow-up encounter History of irregular heartbeat Hx of pilonidal cyst Vitamin D deficiency Lower extremity edema Hyperthyroidism Chest tightness Familial hypercholesteremia DVT (deep venous thrombosis) MVP (mitral valve prolapse) Benign essential HTN Blood in feces Home Medications ?Medication ?Instructions ?Recorded ?Last Taken ?Type albuterol sulfate 90 mcg/actuation 1 inh inhalation Q4H PRN shortness 09/27/23 Unknown History aerosol inhaler of breath or wheezing apixaban 5 mg tablet 5 mg PO BID 09/27/23 07/27/24 History carvedilol 25 mg tablet 25 mg PO BID 09/27/23 07/28/24 History dorzolamide 22.3 mg-timolol 6.8 1 drp ophthalmic (eye) BID 09/27/23 07/28/24 History mg/mL eye drops hydrochlorothiazide 25 mg tablet 25 mg PO DAILY 09/27/23 07/28/24 History latanoprost 0.005 % eye drops 1 drp ophthalmic (eye) QHS 09/27/23 07/27/24 History levothyroxine 112 mcg capsule 112 mcg PO MOTUWETHFRSA 09/27/23 07/28/24 History rosuvastatin 20 mg tablet 20 mg PO QHS 09/27/23 07/27/24 History brimonidine 0.2 % eye drops 1 drp ophthalmic (eye) TID 07/20/24 07/28/24 History cholecalciferol (vitamin D3) 125 125 mcg PO DAILY 07/20/24 07/28/24 History mcg (5,000 unit) tablet (Vitamin D3) Allergy/AdvReac Type Severity Reaction Status Date / Time moxifloxacin (From Avelox) Allergy Intermediate Other Verified 07/28/24 16:33 Family History adopted Surgical History History of cardiac catheterization Hx of thyroidectomy Hx of detached retina repair Social History household members: none Smoking Status: Former smoker quit date: 11/10/19 alcohol intake: current alcohol intake frequency: 3 or more drinks per day Alcohol type: beer substance use type: does not use ROS ROS Narrative Full 12 point ROS completed and neg unless stated in HPI above. Objective Data Objective Data Vital Signs: Vital Signs Last response Temperature 36.4 C L 07/28/24 22:53 Temperature Source Temporal 07/28/24 22:53 Pulse Rate 78 07/28/24 22:53 Pulse Strength Normal (2+) 07/28/24 22:00 Respiratory Rate 19 H 07/28/24 22:53 Blood Pressure 102/88 H 07/28/24 22:53 Blood Pressure Mean 92 07/28/24 22:53 Blood Pressure Source Monitor 07/28/24 22:53 Blood Pressure Position Semi-Fowlers 07/28/24 22:53 Blood Pressure Location Right Arm 07/28/24 22:53 Pulse Ox 98 07/28/24 22:53 Oxygen Delivery Method Room Air 07/28/24 22:53 I&O: I&O Last 24 Hours 07/27/24 07/28/24 07/28/24 23:59 11:59 23:59 Intake Total 0 / 0 Balance 0 / 0 I&O: Total Stay 07/28/24 16:30 thru 07/28/24 22:38 Intake Total 0 Balance 0 Current Meds Ordered / Administered: Current meds ordered / Administered Generic Name Dose Route Start Last Admin Trade Name Freq PRN Reason Stop Dose Admin Acetaminophen 650 mg 07/28/24 21:32 Acetaminophen 325 Mg Tablet PO Q4H PRN PRN Fever, pain 1-12/25 Al Hydroxide/Mg Hydroxide 30 ml 07/28/24 21:32 Mag Hydrox/Al Hydrox/Simeth 30 Ml Udc PO Q6H PRN PRN Gastric Burning Albuterol Sulfate 2.5 mg 07/28/24 21:32 Albuterol 2.5 Mg/3 Ml Vial.Neb. INHALATION Q2H PRN PRN Dyspnea, wheezing Atorvastatin Calcium 40 mg 07/28/24 22:00 07/28/24 22:49 Atorvastatin Calcium 40 Mg Tablet PO 40 mg QHS ELISE Administration Brimonidine Tartrate 1 drp 07/28/24 22:00 07/28/24 22:44 Brimonidine 0.2% 5ml Bottle OPHTHALMIC 1 drp TID ELISE Administration Dorzolamide/Timolol 1 drp 07/28/24 22:00 07/28/24 22:45 Dorzolamide Hcl/Timolol 10 Ml Bottle OPHTHALMIC 1 drp BID ELISE Administration Folic Acid 1 mg 07/29/24 08:00 Folic Acid 1 Mg Tablet PO BREAKFAST ELISE Guaifenesin 10 ml 07/28/24 21:32 Guaifenesin 10 Ml Udc (200mg/10ml) PO Q4H PRN PRN COUGH Pantoprazole Sodium 80 mg/ 100 mls @ 10 mls/hr 07/28/24 21:36 07/28/24 22:40 Sodium Chloride CONT INF 10 mls/hr Q10H ELISE Administration Sodium Chloride 1,000 mls @ 100 mls/hr 07/28/24 21:32 07/28/24 21:57 IV 07/29/24 12:31 100 mls/hr .Q10H ELISE Administration Ceftriaxone Sodium 1 gm in 50 mls @ 100 mls/hr 07/28/24 21:32 07/28/24 22:28 Rocephin IV 100 mls/hr 2200 ELISE Administration Sodium Chloride 250 mls @ 15 mls/hr 07/28/24 21:52 07/28/24 22:40 IV 15 mls/hr .[id number] PRN Administration Saline Flush Sodium Chloride 250 mls @ 15 mls/hr 07/28/24 21:52 07/28/24 22:41 IV 15 mls/hr .[id number] PRN Administration Additional IVPB Infusion Latanoprost 1 drp 07/28/24 22:00 07/28/24 22:41 Latanoprost 0.005% 1 Bottle OPHTHALMIC 1 drp QHS ELISE Administration Levothyroxine Sodium 112 mcg 07/29/24 06:00 Levothyroxine 112 Mcg Tablet PO [id number] [facility] Lorazepam 2 mg 07/28/24 21:32 Lorazepam 2 Mg/Ml Syringe IV UD PRN CIWA score >/=15. Protocol Lorazepam 2 mg 07/28/24 21:32 Lorazepam 2 Mg/Ml Syringe IV Q2H PRN PRN CIWA score > 8 but <15 Protocol Lorazepam 2 mg 07/28/24 21:32 Lorazepam 1 Mg Tablet PO UD PRN CIWA score >/=15. Protocol Lorazepam 2 mg 07/28/24 21:32 Lorazepam 1 Mg Tablet PO Q2H PRN PRN CIWA score > 8 but <15 Protocol Melatonin 3 mg 07/28/24 21:32 Melatonin 3 Mg Tablet PO QHS PRN PRN INSOMNIA Multivitamins/Minerals 1 tablet 07/29/24 08:00 Multivitamins,Ther W-Minerals Tablet PO BREAKFAST [facility] Ondansetron HCl 4 mg 07/28/24 21:32 Ondansetron 4 Mg/2 Ml Vial IV Q8H PRN PRN NAUSEA/VOMITING Prochlorperazine Edisylate 5 mg 07/28/24 21:32 Prochlorperazine 10 Mg/2 Ml Vial IV Q4H PRN PRN Breakthrough Nausea/Vomiting Sodium Chloride 10 - 40 ml 07/28/24 21:52 0.9% Saline Lock 10 Ml Syringe IV UD PRN SALINE FLUSH Thiamine HCl 100 mg 07/29/24 08:00 Thiamine Hydrochloride 100 Mg Tablet PO BREAKFAST [facility] Lab / Micro Data 07/28/24 21:46 07/28/24 16:50 Labs: Laboratory Results - last 24 hr 07/28/24 16:50: WBC 8.3, RBC 3.84 L, Hgb 12.4, Hct 34.7 L, MCV 90.4, MCH 32.3 H, MCHC 35.7, RDW Std Deviation 44.0 H, RDW Coeff of Luis Fernando 13.3, Plt Count 304, MPV 9.8, Immature Gran % (Auto) 0.600, Neut % (Auto) 70.8 H, Lymph % (Auto) 18.3 L, [place] % (Auto) 9.1, Eos % (Auto) 0.5, Baso % (Auto) 0.7, Absolute Neuts (auto) 5.9, Absolute Lymphs (auto) 1.53, Nucleated RBC % 0, PT 13.6, INR 1.0, APTT 28.9, Sodium 136, Potassium 2.8 L, Chloride 94 L, Carbon Dioxide 28.6, Anion Gap 13, BUN 12, Creatinine 0.71, Estim Creat Clear Calc 67.57, Est GFR (MDRD) Non-Af 93, BUN/Creatinine Ratio 16.2, Glucose 119 H, Calcium 9.3, Phosphorus 3.6, Magnesium 2.1, Blood Type A NEGATIVE, Antibody Screen NEGATIVE, Crossmatch See Detail 07/28/24 18:47: Hgb 10.1 L, Hct 29.1 L 07/28/24 21:46: Hgb 10.3 L, Hct 29.9 L Imaging Radiology Impression Abdomen/Pelvis CTA 07/28/24 17:49 IMPRESSION: Diffuse rectosigmoid wall thickening and hyperemia, with small focus of active extravasation, compatible with acute GI bleed. Diffuse atherosclerotic calcification without evidence of dissection. Red Alert: The critical information above was relayed directly by me by telephone to Rodríguez Bray on 07/28/2024 at 9:04 pm with readback verification. Reading Location: [facility] Assessment and Plan . Assessment and plan: PE: General: Well developed, in no distress HEENT: anicteric Sclera, nl nose; supple neck, no masses Cardiovascular: S1/S2; No rubs, gallops; no displaced PM Respiratory: diminished; no crackles, wheezes, or rhonchi Abdominal: Non-tender; Non distended; hypoBS x 4; No Hepatosplenomegaly Extremities: Warm, well perfused; No clubbing, cyanosis; capillary refill < 2 sec Skin: intact, no rashes Neurological: A&Ox3; no gross deficits appreciated #Acute GIB 2* sigmoid ulcer: sp sigmoidoscopy with treatment; cont PPI gtt per GI recommendations #Acute blood loss anemia: cont PRBC transfusion; monitor blood counts #Hypotension a/w syncopal events: still with mild orthostasis but improved overall and no further syncopal events in ICU; cont monitoring & volume/blood replacement; cont gentle IVF for now #Hypokalemia: sp replacement; F/U on AM labs #Hx VTE on Eliquis: hold anticoagulation #COPD/Asthma: PRN nebs #Hypothyroidism: cont home replacement PO diet PPI gtt Guarded prognosis Critical Care Time: 60 min The entirety of this encounter was done via Telemedicine
[2024-07-29] VITALS (13 sets, daily range): BP systolic 100–131; BP diastolic 22–80; PULSE 70–82; RESP 16–23; TEMP 36.4–36.7; O2SAT 94–98; BMI 27.6
[2024-07-29 01:26] LABS: Hematocrit 29.1 % (37-47); Hemoglobin 10.4 g/dL (12.0-15.0)
[2024-07-29] MEDS: 0.9% Saline Lock 10 ML Syringe IV ×2 (05:18→20:32)
[2024-07-29] MEDS: BRIMONIDINE 0.2% 5ML BOTTLE 1 DRP OPHTHALMIC ×3 (05:18→20:34)
[2024-07-29] MEDS: Levothyroxine 112 MCG Tablet PO (05:19)
[2024-07-29 05:40] LABS: Absolute Lymphocyte Count 1.36 X10^3/uL (0.83-4.51); Absolute Neutrophil Count 6.4 X10^3/uL (2.0-7.7); Basophil# 0.04 X10^3/uL; Basophil% 0.5 % (0-1); Eosinophil# 0.03 X10^3/uL; Eosinophils% 0.4 % (0-5); Hematocrit 28.3 % (37-47); Hemoglobin 9.8 g/dL (12.0-15.0); Lymphocyte # 1.36 X10^3/ul (0.83-4.51); Mean Corp Hgb Conc 34.6 g/dL (32-36); Mean Corpuscular Hgb 30.8 pg (27.0-32.0); Mean Platelet Vol. 9.5 fl (6.2-12.0); Monocyte# 0.61 X10^3/uL; Monocyte% 7.2 % (0-10); NRBC Flagged by Analyzer 0 % (0-5); Neutrophil % 75.4 % (47-70); Platelet Count 206 K/mm3 (150-450); RBC Distribution Width CV 14.3 % (11.6-14.6); RBC Distribution Width SD 46.5 fl (35.1-43.9); Red Blood Count 3.18 M/mm3 (4.2-5.4); White Blood Count 8.5 K/mm3 (4.4-11.0)
[2024-07-29 06:10] LABS: ALB/GLOB Ratio 1.3 RATIO (0.9-2.4); AST(SGOT) 17 U/L (<=31); Alanine Aminotransfer ALT/SGPT 10 U/L (<=34); Albumin, Serum 3.1 g/dL (3.4-4.8); Alkaline Phosphatase 51 U/L (35-104); Anion Gap 10 (5-15); BUN 8 mg/dL (4-19); BUN/Creat Ratio 15.7 RATIO (10-20); Calcium,Total 7.8 mg/dL (7.6-11.0); Carbon Dioxide 26.8 mmol/L (21.0-32.0); Chloride 100 mmol/L (98-108); Creatinine, Serum 0.53 mg/dL (0.70-1.20); EST Glomerular Filtration Rate 100 (>60); Estimated Creatinine Clearance 68.38 ml/min (50-250); Globulin 2.4 g/dL (2.2-4.2); Glucose 103 mg/dL (70-99); Protein, Total 5.5 g/dL (5.9-8.4); Sodium Level 136 mmol/L (133-145); Total Bilirubin 0.52 mg/dL (0.00-1.30)
--- NOTE | 2024-07-29 06:30 | NURSING ---
0615 patient bladder scanned 763cc, unable to urinate. straight cathed 700cc, patient tolerated well
[2024-07-29] MEDS: 0.9% Normal Saline (1000mL) 1,000 ML 100 ML IV (07:03)
--- NOTE | 2024-07-29 07:23 | PCM.PN.INT ---
Assessment & Plan Assessment/Plan (1) GI bleed: PLAN: Plan RECOMMENDATIONS: 1. Continue to monitor blood counts and transfuse if hemoglobin drops below 7 g/dL. 2. Continue PPI therapy. 3. Dietary advancement per gastroenterology. 4. Encourage incentive spirometer use and mobilize patient as tolerated. 5. The patient appears medically stable for transfer out of the intensive care unit. Will sign off at this time. IMPRESSIONS: 1. Acute blood loss anemia secondary to GI bleed with transient hypotension The patient presented to the hospital with bright red blood per rectum and was volume resuscitated and underwent sigmoidoscopy. Endoscopic evaluation demonstrated an ulcer in the sigmoid colon which was injected and treated with APC. Clips were subsequently placed. Hemostasis was achieved. Will continue PPI therapy with dietary advancement per gastroenterology recommendations. Continue to monitor H&H and transfuse if hemoglobin drops below 7 g/dL. 2. History of COPD/asthma/chronic kidney disease/hypothyroidism/history of VTE/alcohol dependency Complicates care, management, recovery and prognosis. Continue supportive care as noted above. Continue as needed bronchodilator therapy. This note was generated with [employer] dictation software. It may contain incorrect words, spelling, and punctuation that were not noted in checking the note before signing. Subjective Subjective The patient was seen and examined at the bedside this morning. Events from the last 24 hours have been reviewed. The patient is currently afebrile, hemodynamically stable and maintaining appropriate oxygen saturations on room air. Hemoglobin is stable at 9.8 g/dL. Potassium is low at 3.0 with a normal creatinine. The patient has no specific complaints this morning. Objective Data Objective Data The patient's most recent lab work, culture data and imaging studies have all been personally reviewed. Vital Signs: Vital Signs Temp Pulse Resp BP Pulse Ox O2 Del Method 97.8 F 70 19 H 105/68 96 Room Air 07/29/24 04:00 07/29/24 06:00 07/29/24 06:00 07/29/24 06:00 07/29/24 06:00 07/29/24 06:00 Oxygen Delivery Method Room Air Weight: 166 lb 3.657 oz Body Mass Index (BMI) 27.6 Intake & Output: Intake and Output for Last 24 Hours 07/27/24 07/28/24 07/29/24 23:59 23:59 23:59 Intake Total 85 / 85 2339.25 / 2339.25 Output Total 700 / 700 Balance 1639.25 / 1639.25 Lab / Micro Data Attestation: I reviewed the patient's lab results. 07/29/24 05:25 07/29/24 05:25 Labs: Laboratory Results - last 24 hr 07/28/24 16:50: WBC 8.3, RBC 3.84 L, Hgb 12.4, Hct 34.7 L, MCV 90.4, MCH 32.3 H, MCHC 35.7, RDW Std Deviation 44.0 H, RDW Coeff of Luis Fernando 13.3, Plt Count 304, MPV 9.8, Immature Gran % (Auto) 0.600, Neut % (Auto) 70.8 H, Lymph % (Auto) 18.3 L, [place] % (Auto) 9.1, Eos % (Auto) 0.5, Baso % (Auto) 0.7, Absolute Neuts (auto) 5.9, Absolute Lymphs (auto) 1.53, Nucleated RBC % 0, PT 13.6, INR 1.0, APTT 28.9, Sodium 136, Potassium 2.8 L, Chloride 94 L, Carbon Dioxide 28.6, Anion Gap 13, BUN 12, Creatinine 0.71, Estim Creat Clear Calc 67.57, Est GFR (MDRD) Non-Af 93, BUN/Creatinine Ratio 16.2, Glucose 119 H, Calcium 9.3, Phosphorus 3.6, Magnesium 2.1, Blood Type A NEGATIVE, Antibody Screen NEGATIVE, Crossmatch See Detail 07/28/24 18:47: Hgb 10.1 L, Hct 29.1 L 07/28/24 21:46: Hgb 10.3 L, Hct 29.9 L 07/29/24 01:20: Hgb 10.4 L, Hct 29.1 L 07/29/24 05:25: WBC 8.5, RBC 3.18 L, Hgb 9.8 L, Hct 28.3 L, MCV 89.0, MCH 30.8, MCHC 34.6, RDW Std Deviation 46.5 H, RDW Coeff of Luis Fernando 14.3, Plt Count 206, MPV 9.5, Immature Gran % (Auto) 0.500, Neut % (Auto) 75.4 H, Lymph % (Auto) 16.0 L, [place] % (Auto) 7.2, Eos % (Auto) 0.4, Baso % (Auto) 0.5, Absolute Neuts (auto) 6.4, Absolute Lymphs (auto) 1.36, Nucleated RBC % 0, Sodium 136, Potassium 3.0 L, Chloride 100, Carbon Dioxide 26.8, Anion Gap 10, BUN 8, Creatinine 0.53 L, Estim Creat Clear Calc 68.38, Est GFR (MDRD) Non-Af 100, BUN/Creatinine Ratio 15.7, Glucose 103 H, Calcium 7.8, Total Bilirubin 0.52, AST 17, ALT 10, Alkaline Phosphatase 51, Total Protein 5.5 L, Albumin 3.1 L, Globulin 2.4, Albumin/Globulin Ratio 1.3 Radiography Diagnostic Testing: Radiology Impression Abdomen/Pelvis CTA 07/28/24 17:49 IMPRESSION: Diffuse rectosigmoid wall thickening and hyperemia, with small focus of active extravasation, compatible with acute GI bleed. Diffuse atherosclerotic calcification without evidence of dissection. Red Alert: The critical information above was relayed directly by me by telephone to Rodríguez Bray on 07/28/2024 at 9:04 pm with readback verification. Reading Location: [facility] Physical Exam Const alert, oriented x3 and no apparent distress General Appearance: cooperative HEENT normocephalic, head/scalp atraumatic and moist oral mucous membranes Eyes PERRL, EOMs intact bilaterally and conjunctivae normal Neck supple General: trachea midline Chest inspection of chest normal Resp normal respiratory effort Auscultation: Negative for rales, rhonchi or wheezes Cardio regular rate and regular rhythm GI normal to inspection, nondistended, normoactive bowel sounds Extremity no clubbing, cyanosis or edema Skin no rashes or lesions noted Neuro CN's II-XII intact bilaterally, moves all extremities and no focal motor deficits Psych cooperative and affect normal Charges/Coding Visit Charges Inpatient E&M: 23186 Subs Hosp L2
[2024-07-29] MEDS: Pantoprazole Sodium 80 MG in 0.9% Normal Saline (100mL Bag) 80 ML 10 MG CONT INF (09:51)
[2024-07-29] MEDS: Dorzolamide HCL/Timolol 10 ml Bottle 1 DRP OPHTHALMIC ×2 (10:06→20:34)
[2024-07-29] MEDS: Sodium Ferric Gluconat/Sucrose 250 MG in 0.9% Normal Saline (250mL Bag) 250 ML 135 MG IV (10:07)
--- NOTE | 2024-07-29 10:15 | CASEMGMT ---
Addendum entered by Tirso Arguello 07/29/24 10:58: Strata: 1 Addendum entered by Tirso Arguello 07/29/24 10:48: Pt provided w/physician's directory list. Original Note: RN?CM?FLOUR DISTRIBUTOR?CM?to room to meet with patient for initial transition planning/care coordination?assessment.?RN?CM?introduced self and role at [facility].? Pt voices understanding and consents to?assessment?at this time.? Pt resting in bed in no distress at this time.? Ex-, Acosta, @ bedside and pt referred to him as her best-friend. Pt agreeable to him being present during assessment. Pt is A/O at this time and answers all questions appropriately.?? Care providers, pharmacy, and demographics verified/updated at this time. PCP: No PCP. 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 Pt wishes for her to remain listed as her PCP so she gets hospital discharge info. Specialists: Dr Xiong, GI; Christian Rae, GUMARO/cardiology; Dr Salas, endocrinology Preferred Pharmacy: [facility] @ discharge. Otherwise, goes to [facility]. Insurance: [facility] Prescription Benefit:?yes LNOK: Daughter, Giovanna. Ex-, Acosta. Living Arrangements: Lives alone. Independent. Works part-time @ [employer] Transportation:?Pt states drives self and states no transportation concerns at this time.? DME: ? Denies using any DME and denies needs. HHC/SNF: No hx. Pt wishes to return home and states has no concerns with going home at time of discharge. Pt used to smoke, but quit cold-turkey 6 yrs ago. CM?to follow for any discharge planning/needs.? Pt voices no concerns/needs at this time.? Advised pt to ask for?CM?if any further questions/concerns/needs arise.? Voices understanding. PLAN:??Home Germain MANN?RN?CM
--- NOTE | 2024-07-29 10:39 | CASEMGMT ---
Social Work- SW completed interdisciplinary rounds with care team. Pt ex- present in room, pt agreeable to meet with ex- in room. SW to meet with pt following rounds to address substance usage. Pt dtr present in room; pt deferred meeting at this time. SW remains available to follow. MARTHA Bland
--- NOTE | 2024-07-29 16:37 | PN_ITS ---
Progress Note Patient has been tolerating a diet without any problems. She denies any abdominal pain. She has not had any more bleeding and her blood pressure has been stable throughout the day. Physical Exam Const alert, oriented x3, no apparent distress and healthy appearing General Appearance: cooperative GI normal to inspection, nondistended, normoactive bowel sounds, soft to palpation, non-tender and non-distended Percussion: normal to percussion Rectal Exam: deferred Assessment & Plan Assessment/Plan (1) Chronic anticoagulation: (2) Transient hypotension: (3) Syncope: (4) GI bleed: PLAN: She underwent emergent sigmoidoscopy with control of bleeding yesterday. She previously had a colonoscopy about a week ago. She did not stop her Eliquis. She came in with a lower GI bleed and was discovered to be bleeding at the polypectomy site where previous large 3 cm polyp was removed. The clip was previous placed on that area however the clip it came off. She had 5 more clips placed to that area along with epinephrine and argon plasma coagulation to tamponade bleeding. Her recent hemoglobin was 9.8. I did give her 1 dose of 250 mg IV iron. We will continue to check her hemoglobin. If her hemoglobin continues to stay stable then she can be DC'd to home tomorrow. I told her no anticoagulation for 7 days. Visit Charges Inpatient E&M: 63590 [facility] L3
--- NOTE | 2024-07-29 18:55 | PN.HOSP_ITS ---
Reason for Visit Reason for Visit: Diagnoses Hypotension, unspecified (07/28/24) Gastrointestinal hemorrhage, unspecified (07/28/24) Syncope and collapse (07/28/24) nursing home (current) use of anticoagulants (07/28/24) Subjective Subjective Patient was seen and examined today, her family was in the room at the time my examination. I did talk with gastroenterology about her care, hemoglobin this morning was 9.8. Repeat CBC will be obtained tomorrow. Patient appeared stable for transfer to [place] [id number] for further care. Objective Data Objective Data Vital Signs: Vital Signs Temp Pulse Resp BP Pulse Ox O2 Del Method 98.1 F 77 18 127/78 H 98 Room Air 07/29/24 16:38 07/29/24 16:38 07/29/24 16:38 07/29/24 16:38 07/29/24 16:38 07/29/24 16:38 Oxygen Delivery Method Room Air Weight: 75.4 kg Body Mass Index (BMI) 27.6 Intake & Output: Intake and Output for Last 24 Hours 07/27/24 07/28/24 07/29/24 23:59 23:59 23:59 Intake Total 85 / 85 3252.33 / 3252.33 Output Total 700 / 700 Balance 85 / 85 2552.33 / 2552.33 Lab / Micro Data 07/30/24 05:21 07/29/24 05:25 Labs: Laboratory Results - last 24 hr 07/28/24 16:50: Phosphorus 3.6, Magnesium 2.1, Crossmatch See Detail 07/28/24 18:47: Hgb 10.1 L, Hct 29.1 L 07/28/24 21:46: Hgb 10.3 L, Hct 29.9 L 07/29/24 01:20: Hgb 10.4 L, Hct 29.1 L 07/29/24 05:25: WBC 8.5, RBC 3.18 L, Hgb 9.8 L, Hct 28.3 L, MCV 89.0, MCH 30.8, MCHC 34.6, RDW Std Deviation 46.5 H, RDW Coeff of Luis Fernando 14.3, Plt Count 206, MPV 9.5, Immature Gran % (Auto) 0.500, Neut % (Auto) 75.4 H, Lymph % (Auto) 16.0 L, [place] % (Auto) 7.2, Eos % (Auto) 0.4, Baso % (Auto) 0.5, Absolute Neuts (auto) 6.4, Absolute Lymphs (auto) 1.36, Nucleated RBC % 0, Sodium 136, Potassium 3.0 L , Chloride 100, Carbon Dioxide 26.8, Anion Gap 10, BUN 8, Creatinine 0.53 L, Estim Creat Clear Calc 68.38, Est GFR (MDRD) Non-Af 100, BUN/Creatinine Ratio 15.7, Glucose 103 H, Calcium 7.8, Total Bilirubin 0.52, AST 17, ALT 10, Alkaline Phosphatase 51, Total Protein 5.5 L, Albumin 3.1 L, Globulin 2.4, Albumin/Globulin Ratio 1.3 Radiography Diagnostic Testing: Radiology Impression Abdomen/Pelvis CTA 07/28/24 17:49 IMPRESSION: Diffuse rectosigmoid wall thickening and hyperemia, with small focus of active extravasation, compatible with acute GI bleed. Diffuse atherosclerotic calcification without evidence of dissection. Red Alert: The critical information above was relayed directly by me by telephone to Rodríguez Bray on 07/28/2024 at 9:04 pm with readback verification. Reading Location: [facility] Physical Exam Const alert, oriented x3, no apparent distress, average body habitus and healthy appearing General Appearance: cooperative, well kempt and well developed Orientation / Consciousness: awake, oriented to person, oriented to place and oriented to time HEENT normocephalic, head/scalp atraumatic and moist oral mucous membranes Eyes PERRL, EOMs intact bilaterally and conjunctivae normal Neck supple, no JVD, thyroid normal and no carotid bruits General: trachea midline Resp normal respiratory effort, no retractions, no use of accessory muscles and clear to auscultation bilaterally Auscultation: Negative for rales, rhonchi or wheezes Cardio regular rate, regular rhythm, S1 normal heart sound, S2 normal heart sound, no murmurs, no rub and no gallops GI normal to inspection, nondistended, normoactive bowel sounds, soft to palpation, non-tender and non-distended Extremity no clubbing, cyanosis or edema Skin no rashes or lesions noted General Skin Exam: no breakdown Neuro oriented x3, CN's II-XII intact bilaterally, moves all extremities, no focal motor deficits and no sensory deficits noted Sensorium / Orientation: awake and alert Speech: speech normal Psych affect normal Assessment & Plan Assessment/Plan (1) GI bleed: PLAN: Plan 1. Lower GI bleed secondary to colonic bleeding at a previous polypectomy site exacerbated by use of anticoagulant, requiring transfusion of packed red blood cells-this was reclipped, patient appears stable at this time. CBC will be repeated tomorrow morning, patient appears to be stable for transfer to the [facility] floor #2 chronic use of anticoagulant due to previous history of DVT-patient's Eliquis will be held #3 essential hypertension-patient's hydrochlorothiazide and carvedilol are being held at this time Total clinical time spent by myself addressing the patient's medical issues, reviewing all of her data, and collaborating with the patient's care team: 35 minutes Charges/Coding Visit Charges Inpatient E&M: 57761 Subs Hosp L2
[2024-07-29] MEDS: Latanoprost 0.005% 1 Bottle 1 DRP OPHTHALMIC (20:34)
[2024-07-29] MEDS: Atorvastatin Calcium 40 MG Tablet PO (20:35)
[2024-07-30 04:24] VITALS: BP 127/69; PULSE 79; RESP 16; TEMP 36.6; O2SAT 97
[2024-07-30 05:43] VITALS: BMI 27.4
[2024-07-30] MEDS: Levothyroxine 112 MCG Tablet PO (05:51)
[2024-07-30] MEDS: BRIMONIDINE 0.2% 5ML BOTTLE 1 DRP OPHTHALMIC (05:51)
[2024-07-30 05:56] LABS: Absolute Lymphocyte Count 1.46 X10^3/uL (0.83-4.51); Absolute Neutrophil Count 3.6 X10^3/uL (2.0-7.7); Basophil# 0.04 X10^3/uL; Basophil% 0.7 % (0-1); Eosinophils% 3.4 % (0-5); Hematocrit 27.3 % (37-47); Hemoglobin 9.5 g/dL (12.0-15.0); Lymphocyte # 1.46 X10^3/ul (0.83-4.51); Lymphocyte % 25.1 % (19-41); Mean Corp Hgb Conc 34.8 g/dL (32-36); Mean Corpuscular Hgb 31.3 pg (27.0-32.0); Mean Corpuscular Volume 89.8 fL (81-99); Mean Platelet Vol. 9.9 fl (6.2-12.0); Monocyte# 0.45 X10^3/uL; Monocyte% 7.7 % (0-10); NRBC Flagged by Analyzer 0 % (0-5); Neutrophil # 3.57 X10^3/uL (2.7-7.7); Neutrophil % 61.4 % (47-70); Platelet Count 208 K/mm3 (150-450); RBC Distribution Width CV 14.6 % (11.6-14.6); RBC Distribution Width SD 47.5 fl (35.1-43.9); Red Blood Count 3.04 M/mm3 (4.2-5.4); White Blood Count 5.8 K/mm3 (4.4-11.0)
[2024-07-30 09:08] VITALS: BP 113/71; PULSE 72; RESP 18; TEMP 36.8; O2SAT 99
[2024-07-30] MEDS: Folic Acid 1 MG Tablet PO (09:16)
[2024-07-30] MEDS: Thiamine Hydrochloride 100 MG Tablet PO (09:16)
[2024-07-30] MEDS: Multivitamins,Ther W-Minerals Tablet 1 TABLET PO (09:16)
[2024-07-30] MEDS: Dorzolamide HCL/Timolol 10 ml Bottle 1 DRP OPHTHALMIC (09:16)
[2024-07-30] MEDS: Pantoprazole Sodium 40 MG Tablet PO (09:19)
--- NOTE | 2024-07-30 10:50 | DCINST_ITS ---
Discharge Instructions Diet Discharge Diet: No restrictions DC O2, CPAP, BIPAP needs Home O2 Discharge instructions: No Dressing / Incision Discharge Activity: Return to Normal Activity Weight Bearing Status: Full weight bearing Follow Up Care Test Results: Test results from this visit will be discussed in further detail at your follow- up appointment, if applicable. Discharge Plan Admission Admit Date/Time: 07/28/24 19:20 Primary Reason for Your Visit: lower GI bleeding Attending Provider: Robert Guajardo Primary Care Provider: Kyra Gonzales NP Consulting Providers: Josefina Ventura Discharge Orders/Prescriptions Prescriptions: Continued albuterol sulfate 90 mcg/actuation HFA aerosol inhaler 1 inh inhalation Q4H PRN (Reason: shortness of breath or wheezing) dorzolamide-timolol 22.3-6.8 mg/mL drops 1 drp ophthalmic (eye) BID latanoprost 0.005 % drops 1 drp ophthalmic (eye) QHS levothyroxine 112 mcg capsule 112 mcg PO MOTUWETHFRSA rosuvastatin 20 mg tablet 20 mg PO QHS brimonidine 0.2 % drops 1 drp ophthalmic (eye) TID cholecalciferol (vitamin D3) [Vitamin D3] 125 mcg (5,000 unit) tablet 125 mcg PO DAILY Held apixaban 5 mg tablet 5 mg PO BID Hold Instructions: Resume on 08/06/24. hold for 7 more days, then resume Eliquis Discontinued carvedilol 25 mg tablet 25 mg PO BID Rx Instructions: must administer with a meal/food hydrochlorothiazide 25 mg tablet 25 mg PO DAILY Referrals / Follow Up: Elmo Xiong DO [Med Staff - Active Staff] - See Referral Note (in 2-3 weeks) Kyra Gonzales NP, [employer]ER-C [Primary Care Provider] - Disposition Disposition (needs filled in before D/C Order can be placed): Home, Self Care
--- NOTE | 2024-07-30 11:23 | DS.PCM_ITS ---
Providers Date of Admission: 07/28/24 Date of Discharge: 07/30/24 Primary Care Physician: Kyra Gonzales, ANNA Consultations 07/28/24 21:32 Consult: Gastroenterology Routine Consulting Provider: [facility] Reason for Consult: GI bleed, ABLA, concern hemorrhagic shock EMERGENT Consult: Yes Notified: Yes Date Notified: 07/28/24 Time Notified: 19:20 Method of Notification: Verbal Consult: Skull Splitter / Pulmonary Medicine Routine Consulting Provider: Intensivists/Pulmonary Med Reason for Consult: GI bleed, ABLA, concern hemorrhagic shock EMERGENT Consult: No Notified: Yes Date Notified: 07/28/24 Time Notified: 19:24 Method of Notification: Text Reason For Visit: GI BLEED, ABLA, CONCERN HEMORRHAGIC SHOCK Diagnosis Discharge Diagnosis (1) Chronic anticoagulation: Status: Acute 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 Lower GI bleed secondary to colonic bleeding at a previous polypectomy site exacerbated by use of anticoagulant, requiring transfusion of packed red blood cells-this was reclipped, patient appears stable at this time. CBC will be repeated tomorrow morning, patient appears to be stable for transfer to the [facility] floor #2 chronic use of anticoagulant due to previous history of DVT-patient's Eliquis will be held #3 essential hypertension-patient's hydrochlorothiazide and carvedilol are being held at this time Medications at Discharge Home Medications albuterol sulfate 90 mcg/actuation aerosol inhaler 1 inh inhalation Q4H PRN shortness of breath or wheezing 09/27/23 apixaban 5 mg tablet 5 mg PO BID 09/27/23 Held on 07/30/24. Instructions: Resume on 08/06/24. hold for 7 more days, then resume Eliquis dorzolamide 22.3 mg-timolol 6.8 mg/mL eye drops 1 drp ophthalmic (eye) BID 09/27/23 latanoprost 0.005 % eye drops 1 drp ophthalmic (eye) QHS 09/27/23 levothyroxine 112 mcg capsule 112 mcg PO MOTUWETHFRSA 09/27/23 rosuvastatin 20 mg tablet 20 mg PO QHS 09/27/23 brimonidine 0.2 % eye drops 1 drp ophthalmic (eye) TID 07/20/24 cholecalciferol (vitamin D3) 125 mcg (5,000 unit) tablet (Vitamin D3) 125 mcg PO DAILY 07/20/24 Hospital Course Operations None Procedures - (Sigmoidoscopy) Summary of Care Provided Minutes Spent on Discharge: 31 Hospital Course: This 69-year-old white female seen in the emergency room at [facility] with complaints of increasing bright red rectal bleeding and clots since the day before. Patient had a colonoscopy 6 days ago with multiple polypectomies, she takes Eliquis for DVT history. Lab obtained in the emergency room showed the patient's hemoglobin to be 12.4. Chemistry profile was unremarkable. CT of the abdomen and pelvis showed diffuse retrosigmoid wall thickening and hyperemia with a small focus of active extravasation compatible with acute GI bleed. Patient was admitted to ICU and underwent a sigmoidoscopy by gastroenterology which revealed a single solitary ulcer in the sigmoid colon which was injected and clips were placed. Patient's labs were monitored during her hospitalization and there was no significant rebleeding. On 07/30/2024, patient was seen and examined: On examination she appeared in good health and spirits, she does not appear to be in any distress. Vital signs as documented. Skin warm and dry and without overt rashes. Neck without JVD, thyroid appears normal, trachea is midline, neck is supple. Lungs clear, normal air movement was noted. Heart exam notable for regular rhythm, normal sounds and absence of murmurs, rubs or gallops. Abdomen unremarkable and without evidence of organomegaly, masses, or abdominal aortic enlargement, bowel sounds are present in all 4 quadrants, no abdominal tenderness was noted. Extremities nonedematous, no cyanosis was noted, no clubbing was noted. Neuro: Cranial nerves II through XII are grossly intact, no focal motor deficits were noted, sensation to light touch and pinprick is intact, motor exam 5/5 throughout. Psych: Patient is alert and oriented x3, she does not appear anxious or depressed, she does not appear agitated. Patient appeared stable for discharge home, she was taken off several of her blood pressure medications due to the fact that she did not require them for blood pressure control. Weight / BMI Weight Weight: 74.7 kg Body Mass Index (BMI) 27.4 ABG / Lab / Microbiology Data 07/30/24 05:21 07/29/24 05:25 Laboratory: Laboratory Results - last 24 hr 07/30/24 05:21: WBC 5.8, RBC 3.04 L, Hgb 9.5 L, Hct 27.3 L, MCV 89.8, MCH 31.3, MCHC 34.8, RDW Std Deviation 47.5 H, RDW Coeff of Luis Fernando 14.6, Plt Count 208, MPV 9.9, Immature Gran % (Auto) 1.700 H, Neut % (Auto) 61.4, Lymph % (Auto) 25.1, [place] % (Auto) 7.7, Eos % (Auto) 3.4, Baso % (Auto) 0.7, Absolute Neuts (auto) 3.6, Absolute Lymphs (auto) 1.46, Nucleated RBC % 0 D/C Instructions Discharge Diet: No restrictions Weight Bearing Status: Full weight bearing DC O2, CPAP, BIPAP Needs Home O2 Discharge instructions: No Meaningful Use Info Meaningful Use Meaningful Use Diagnoses (Choose all that apply): None applicable Ischemic Stroke Statin Dosing Therapy Reference: STATIN DOSE THERAPY REFERENCE: * Patients > 75 years receive moderate or high dose statin therapy. * Patients 75 years or YOUNGER should receive HIGH intensity statin dose unless contraindicated. You will be required to document reason for non-treatment if statin daily dose does not meet guidelines. HIGH DOSE STATIN THERAPY DAILY Atorvastatin > than or = to 40 mg Rosuvastatin > than or = to 20 mg Amlodipine + Atorvastatin > than or = to 2.5/40 mg Ezetimibe + Simvastatin 10/80 mg Simvastatin 80mg Discharge Plan Admission Admit Date/Time: 07/28/24 19:20 Primary Reason for Your Visit: lower GI bleeding Attending Provider: Robert Guajardo Primary Care Provider: Kyra Gonzales CUT AND PRINT MACHINE OPERATOR Consulting Providers: Josefina Ventura Discharge Orders/Prescriptions Prescriptions: Continued albuterol sulfate 90 mcg/actuation HFA aerosol inhaler 1 inh inhalation Q4H PRN (Reason: shortness of breath or wheezing) dorzolamide-timolol 22.3-6.8 mg/mL drops 1 drp ophthalmic (eye) BID latanoprost 0.005 % drops 1 drp ophthalmic (eye) QHS levothyroxine 112 mcg capsule 112 mcg PO MOTUWETHFRSA rosuvastatin 20 mg tablet 20 mg PO QHS brimonidine 0.2 % drops 1 drp ophthalmic (eye) TID cholecalciferol (vitamin D3) [Vitamin D3] 125 mcg (5,000 unit) tablet 125 mcg PO DAILY Held apixaban 5 mg tablet 5 mg PO BID Hold Instructions: Resume on 08/06/24. hold for 7 more days, then resume Eliquis Discontinued carvedilol 25 mg tablet 25 mg PO BID Rx Instructions: must administer with a meal/food hydrochlorothiazide 25 mg tablet 25 mg PO DAILY Referrals / Follow Up: Elmo Xiong DO [Med Staff - Active Staff] - See Referral Note (in 2-3 weeks) Kyra Gonzales CUT AND PRINT MACHINE OPERATOR, CUT AND PRINT MACHINE OPERATOR-C [Primary Care Provider] - Disposition Disposition (needs filled in before D/C Order can be placed): Home, Self Care Charges/Coding Visit Charges Inpatient E&M: 44254 Disch Hosp >30min
[2024-07-30] MEDS: 0.9% Saline Lock 10 ML Syringe IV (11:43)
[2024-07-30] MEDS: Sodium Ferric Gluconat/Sucrose 250 MG in 0.9% Normal Saline (250mL Bag) 250 ML 135 MG IV (11:43)
--- NOTE | 2024-07-30 12:21 | CASEMGMT ---
RN CM NOTE: DC order is in. RN CM to room. Pt sitting up in chair, eating lunch. She denies having any discharge needs or concerns. Germain WADSWORTH RN CM
[2024-07-30 13:25] VITALS: O2SAT 98
== END 2024-07-30 14:31 | disposition home or self-care (01) | DRG 920 ==
LOC: ED 19:04 → ICU 19:33 → MS3 07-29 16:38
PROVIDERS: Admitting Provider Family Medicine; Emergency Provider Emergency Medicine; PCP Nurse Practitioner Family; Referring Provider Internal Medicine Gastroenterology; Visit Provider Internal Medicine
PROC: 0DJD8ZZ Inspection of Lower Intestinal Tract, Via Natural or Artificial Opening Endoscopic (ICD-10-PCS; CPT 45378; principal; 2024-07-28 20:00)
DX: K91.840 Postprocedural hemorrhage of a digestive system organ or structure following a digestive system procedure (principal); D68.9 Coagulation defect, unspecified; D68.32 Hemorrhagic disorder due to extrinsic circulating anticoagulants; D62 Acute posthemorrhagic anemia; K62.5 Hemorrhage of anus and rectum; T85.528A Displacement of other gastrointestinal prosthetic devices, implants and grafts, initial encounter; J44.9 Chronic obstructive pulmonary disease, unspecified; E89.0 Postprocedural hypothyroidism; F10.10 Alcohol abuse, uncomplicated; I12.9 Hypertensive chronic kidney disease with stage 1 through stage 4 chronic kidney disease, or unspecified chronic kidney disease; N18.9 Chronic kidney disease, unspecified; I10 Essential (primary) hypertension; K63.5 Polyp of colon; E78.01 Familial hypercholesterolemia; E87.6 Hypokalemia; Z87.891 Personal history of nicotine dependence; Z79.01 Long term (current) use of anticoagulants; R03.1 Nonspecific low blood-pressure reading; Z79.890 Hormone replacement therapy; R55 Syncope and collapse; Z86.718 Personal history of other venous thrombosis and embolism; Y73.2 Prosthetic and other implants, materials and accessory gastroenterology and urology devices associated with adverse incidents
CPT/HCPCS: 36415; 74174; 80048; 80053; 83735; 84100; 85014; 85018; 85025; 85610; 85730; 86850; 86900; 86901; 93005; 94668; 99285; C1889; P9016; Q9967; A4216; J2405; J2916